=== PATIENT | female | born 1985 | race Caucasian/White ===

== ENCOUNTER → 2018-01-08 16:48 | Outpatient (CLI) | payer MEDICAID, SELFPAY ==
[2018-01-08 21:12] LABS: Chlamydia Trachomatis by PCR Negative (Negative); Neisserai gonorrhoeae by PCR Negative (Negative); Probe Check PASS; Sample Adequacy Control PASS; Specimen Processing Control PASS
== END ==
PROVIDERS: Visit Provider Obstetrics & Gynecology
DX: Z11.3 Encounter for screening for infections with a predominantly sexual mode of transmission (principal)
CPT/HCPCS: 87491; 87591

== ENCOUNTER 2018-01-24 16:24 | Outpatient (CLI) | payer MEDICAID, SELFPAY ==
[2018-01-24 16:58] VITALS: BP 114/67; PULSE 79; RESP 16; TEMP 36.8; O2SAT 99
[2018-01-24] MEDS: Dextrose 5%-Lactated Ringers 1,000 ML 125 ML IV (20:15)
== END 2018-01-25 04:20 | disposition home or self-care (01) ==
LOC: MEDOUTP 16:24 → MS2 16:25
PROVIDERS: Visit Provider Obstetrics & Gynecology
DX: R11.10 Vomiting, unspecified (principal)
CPT/HCPCS: 96365; 96366 ×11

== ENCOUNTER → 2018-01-29 16:28 | Outpatient (CLI) | payer MEDICAID, SELFPAY ==
[2018-01-29 18:09] LABS: Absolute Lymphocyte Count 2.05 X10^3/ul (0.83-4.51); Absolute Neutrophil Count 8.9 X10^3/uL (2.0-7.7); Basophil# 0.01 X10^3/uL; Basophil% 0.1 % (0-1); Eosinophil# 0.04 X10^3/uL; Eosinophils% 0.3 % (0-5); Hematocrit 37.3 % (37-47); Hemoglobin 12.1 g/dl (12.0-15.0); Lymphocyte # 2.05 X10^3/ul (4.0); Lymphocyte % 17.7 % (19-41); Mean Corp Hgb Conc 32.4 g/gl (32-36); Mean Corpuscular Hgb 29.2 pg (27.0-32.0); Mean Corpuscular Volume 89.9 fL (81-99); Mean Platelet Vol. 13.1 fl (6.2-12.0); Monocyte# 0.59 X10^3/uL; Monocyte% 5.1 % (0-10); Neutrophil # 8.86 X10^3/uL (2.7-7.7); Neutrophil % 76.5 % (47-70); Platelet Count 287 K/mm3 (150-450); RBC Distribution Width CV 13.1 % (11.6-14.6); RBC Distribution Width SD 42.9 fl (35.1-43.9); Red Blood Count 4.15 M/mm3 (4.2-5.4); White Blood Count 11.6 K/mm3 (4.4-11.0)
[2018-01-29 18:20] LABS: POSITIVE COUNT NO; POSITIVE DIFFERENTIAL NO; POSITIVE MORPHOLOGY NO
[2018-01-29 18:29] LABS: Thyroid Stim Hormone (TSH) 0.17 uIU/mL (0.358-3.74)
[2018-01-29 19:05] LABS: HIV - WCH Non-Reactive (Nonreactive); Rubella IgG 75.8 IU/mL
[2018-01-29 19:07] LABS: Amphetamine Urine VISTA NEGATIVE (<1000 ng/mL); Barbiturate Urine VISTA NEGATIVE (< 200 ng/mL); Benzodiazepine Urine VISTA NEGATIVE (< 200 ng/mL); Cocaine Urine VISTA NEGATIVE (< 300 ng/mL); Ecstacy Urine VISTA NEGATIVE (< 500 ng/mL); Methadone Urine VISTA NEGATIVE (< 300 ng/mL); PCP Urine VISTA NEGATIVE (< 25 ng/mL); THC Urine VISTA NEGATIVE (< 50 ng/mL); Vista UDS pH Range 5
[2018-01-29 19:41] LABS: Color, Urine Yellow (Yellow); Glucose, Dipstick Normal (Normal); Ketone-Dipstick Negative (Negative); Leukocyte Esterase-Dipstick Negative /ul (Negative); Nitrite-Dipstick Negative (Negative); Occult Blood-Urine Negative /ul (Negative); Protein-Dipstick Negative (Negative); Urine Bilirubin Dipstick Negative (Negative); Urine Clarity Cloudy (Clear); Urine Urobilinogen Normal (Normal)
[2018-01-31 11:24] LABS: HEPATITIS B SURFACE AG Negative (Negative); Hep C Antibodies <0.1 s/co ratio (0.0-0.9)
[2018-02-02 01:05] LABS: Prenatal RPR NONREACTIVE (NONREACTIVE)
== END ==
PROVIDERS: Visit Provider Obstetrics & Gynecology
DX: Z34.81 Encounter for supervision of other normal pregnancy, first trimester (principal)
CPT/HCPCS: 36415; 80307; 81002; 84443; 85025; 86703; 86762; 86803; 87340

== ENCOUNTER 2018-02-27 13:45 | Emergency (ER) | payer MEDICAID, SELFPAY ==
[2018-02-27 13:46] VITALS: BP 130/66; PULSE 94; RESP 18; TEMP 36.6; O2SAT 97; BMI 46.5
[2018-02-27 14:24] LABS: Absolute Lymphocyte Count 1.25 X10^3/ul (0.83-4.51); Absolute Neutrophil Count 7.2 X10^3/uL (2.0-7.7); Basophil# 0.01 X10^3/uL; Basophil% 0.1 % (0-1); Eosinophil# 0.03 X10^3/uL; Eosinophils% 0.3 % (0-5); Hemoglobin 11.5 g/dl (12.0-15.0); Lymphocyte # 1.25 X10^3/ul (4.0); Lymphocyte % 13.9 % (19-41); Mean Corp Hgb Conc 32.9 g/gl (32-36); Mean Corpuscular Hgb 29.3 pg (27.0-32.0); Mean Corpuscular Volume 89.1 fL (81-99); Monocyte# 0.49 X10^3/uL; Monocyte% 5.5 % (0-10); Neutrophil # 7.18 X10^3/uL (2.7-7.7); Neutrophil % 80.1 % (47-70); Platelet Count 273 K/mm3 (150-450); RBC Distribution Width CV 13.3 % (11.6-14.6); RBC Distribution Width SD 43.9 fl (35.1-43.9); Red Blood Count 3.93 M/mm3 (4.2-5.4)
[2018-02-27 14:27] LABS: Color, Urine Yellow (Yellow); Glucose, Dipstick Normal (Normal); Ketone-Dipstick 50 mg/dl (Negative); Leukocyte Esterase-Dipstick 25 /ul (Negative); Nitrite-Dipstick Negative (Negative); Occult Blood-Urine 10 /ul (Negative); Protein-Dipstick 15 mg/dl (Negative); Specific Gravity, Urine 1.025 (1.002-1.030); Urine Bilirubin Dipstick Negative (Negative); Urine Clarity Sl. Cloudy (Clear); Urine Urobilinogen Normal (Normal)
[2018-02-27 14:28] LABS: POSITIVE COUNT NO; POSITIVE DIFFERENTIAL NO; POSITIVE MORPHOLOGY NO
[2018-02-27 14:34] LABS: Bacteria 2+ /hpf (None Seen); Mucous, Urine 1+ /hpf (<or=2+); Red Blood Cells-Urine 0-5 SEEN /hpf (0-5); Squamous Epithelial Cells - UA 5-10 SEEN /hpf (5-10); White Blood Cells 0-5 SEEN /hpf (0-5)
[2018-02-27 14:56] LABS: Anion Gap 8 (5-15); BUN 8 mg/dL (7-18); BUN/Creat Ratio 14.1 RATIO (10-20); Calcium,Total 9.1 mg/dL (8.5-10.1); Chloride 104 mmol/L (98-107); Creatinine, Serum 0.57 mg/dL (0.55-1.02); EST Glomerular Filtration Rate 129 mL/min (>60); Est Glom Filt Rate - Afr Amer 156 mL/min (>60); Estimated Creatinine Clearance 125.14 ml/min; Glucose 75 mg/dL (74-106); Potassium 3.9 mmol/L (3.5-5.1); Sodium Level 136 mmol/L (136-145)
[2018-02-27 15:15] LABS: Pregnancy, Serum, hCG Quali. POSITIVE Negative (0-9 Nonpreg)
--- NOTE | 2018-02-27 15:30 | ED.VISSUMM ---
- ER Visit Summary Date of Service: 02/27/18 Chief Complaint: Vomiting and diarrhea and History of Present Illness: The patient is a 33 F who states that she is 14 weeks with twins. She sees Dr. Alejo for [facility] OPERATOR. The patient states that for the past 4 days she has had diarrhea. She states that she has had difficulty with vomiting the entire and Phenergan had been helping up until a couple days ago. Now she notes a generalized headache. She denies any fevers or rashes. She states she has had 3 episodes of diarrhea today that have been very small amounts. She denies any neurologic symptoms. Physical Examination: 130/66 temperature is 98 heart rate of 94 respirations are 18 pulse ox is 97% on room air Gen: Well-nourished well-developed Head: Normocephalic atraumatic Eyes: Perrl EOMI ENT: TMs clear no rhinorrhea moist mucous membranes Neck: Supple no lymphadenopathy no JVD nontender CVS: Regular rate rhythm no murmurs normal S1-S2 Respiratory: No distress clear to auscultation bilaterally chest nontender Abdomen: Soft nontender nondistended normal bowel sounds no masses Back: Nontender Extremity: Nontender no edema Skin: Normal color no rash Neuro: alert orientated ?3 CN II-XII intact normal strength sensation reflexes gait cerebellar Psych: Normal affect normal mood Test Results: C and a BMP showed a white count of 9 and hemoglobin 11.5. Urinalysis showed 50 ketones 5-10 epithelial cells. Emergency Department Course and Treatment: Received 2 L of IV fluids as well as Reglan. Bedside ultrasound of the uterus demonstrated baby A with heart rate of 142 with good activity baby B had heart rate of 153 with good activity. Patient overall is improved. She is hungry. Patient will be discharged home follow-up with her [facility] MILL OPERATOR Impression: 1. Gastroenteritis 2. Second trimester twin 3. Cephalgia This note was generated with [employer] dictation software. It may contain incorrect words, spelling, and punctuation that were not noted in review of the chart prior to signing ED Disposition - Plan for ED Patient: Disposition: Home or Assisted Living Chief Complaint: Nausea/Vomiting/Diarrhea Instructions: ED Vomiting Diarrhea Nonspecific Ad Referrals: Deuce Ibarra MD [STAFF PHYSICIAN] - Keep Tika appointment
[2018-02-27] MEDS: 0.9% Normal Saline 1,000 ML 999 ML IV ×2 (15:47)
[2018-02-27] MEDS: Metoclopramide 10 MG/2 ML Vial 5 MG IV (15:48)
[2018-02-27] MEDS: Acetaminophen 500 MG Tablet 1000 MG PO (17:15)
[2018-02-27 17:16] VITALS: BP 128/79; PULSE 99; RESP 16; O2SAT 100
[2018-02-27 17:40] VITALS: BP 128/79; PULSE 94; RESP 18; O2SAT 99
== END 2018-02-27 17:41 | disposition home or self-care (01) ==
PROVIDERS: Emergency Provider Emergency Medicine
DX: O98.512 Other viral diseases complicating pregnancy, second trimester (principal); K52.9 Noninfective gastroenteritis and colitis, unspecified; O99.89 Other specified diseases and conditions complicating pregnancy, childbirth and the puerperium; R51 Headache; E86.0 Dehydration; O99.512 Diseases of the respiratory system complicating pregnancy, second trimester; J45.909 Unspecified asthma, uncomplicated; O99.342 Other mental disorders complicating pregnancy, second trimester; F32.9 Major depressive disorder, single episode, unspecified; Z3A.14 14 weeks gestation of pregnancy; Z90.49 Acquired absence of other specified parts of digestive tract
CPT/HCPCS: 80048; 81001; 84703; 85025; 96361; 96374; 99284; J7030; A4216

== ENCOUNTER 2018-03-25 16:54 | Emergency (ER) | payer MEDICAID, SELFPAY ==
[2018-03-25 16:55] VITALS: BP 139/92; PULSE 117; RESP 16; TEMP 36; O2SAT 100; BMI 48.7
--- NOTE | 2018-03-25 17:03 | ED.DCSUM_ITS ---
- ER Visit Summary Date of Service: 03/25/18 Chief Complaint: Nausea, lightheadedness History of Present Illness: The patient is a 33 F presents to the emergency department with nausea and lightheadedness. The patient is currently 16 weeks gestation with twins. States over the past week, she feels like she has been dehydrated. Today, she was outside. She states she began to feel lightheaded. She denies any chest pain. She did not pass out. She has had some mild abdominal cramping, but states his been constant throughout the . She is currently taking Phenergan and prenatals. She states she has been up all night because she just found out that her [id number] has cancer and was admitted to the hospital. She has had no vaginal bleeding or discharge. She denies any urinary symptoms. She is scheduled to see [facility] SAL[employer] INSPECTOR in the morning. Physical Examination: Vital signs reviewed General: Well-nourished, well-developed Head: Normocephalic, atraumatic Eyes: Pupils equal and reactive, extraocular muscles intact Neck, supple, no lymphadenopathy Heart: Regular rate and rhythm Respiratory: No distress, clear bilaterally Abdomen: Soft, nontender, nondistended, no peritoneal signs Back: Nontender Extremities: Nontender, no edema, no cords Skin: Normal color no rash Neuro: Alert and oriented, no focal or lateralizing deficits Test Results: [] Emergency Department Course and Treatment: Patient was mildly tachycardic, but had no chest pain or dyspnea. Her abdominal exam is benign. Bedside ultrasound was performed. Patient has confirmed intrauterine twin . heart rates in the 140s and reactive. Patient was given IV fluids. Screening labs are obtained. Patient was given 2 L of fluids. She was also given oral Tylenol. On reevaluation she is resting comfortably. She has had no further progression of symptoms. She has had improvement. At this time, I do feel that she is safe for outpatient follow-up. She will be discharged home to follow-up with WO[employer] SAL[employer]AGE INSPECTOR tomorrow as scheduled. Treatment Plan: [] Disposition: Discharge Impression: 1. Dehydration 2. This note was generated with [employer] software. It may contain incorrect words, spelling, and punctuation that were not noted in review of the chart prior to signing ED Disposition - Plan for ED Patient: Chief Complaint: Nausea/Vomiting/Diarrhea Instructions: ED Dehydration Referrals: Weeman,Deuce, MD [STAFF PHYSICIAN] -
[2018-03-25] MEDS: 0.9% Normal Saline 1,000 ML 1000 ML IV ×2 (17:25→17:32)
[2018-03-25 17:32] LABS: Absolute Lymphocyte Count 1.56 X10^3/ul (0.83-4.51); Absolute Neutrophil Count 7.9 X10^3/uL (2.0-7.7); Basophil# 0.01 X10^3/uL; Basophil% 0.1 % (0-1); Eosinophil# 0.04 X10^3/uL; Eosinophils% 0.4 % (0-5); Hematocrit 34.1 % (37-47); Lymphocyte # 1.56 X10^3/ul (4.0); Lymphocyte % 15.6 % (19-41); Mean Corp Hgb Conc 32.3 g/gl (32-36); Mean Corpuscular Hgb 29.1 pg (27.0-32.0); Mean Corpuscular Volume 90.2 fL (81-99); Neutrophil # 7.91 X10^3/uL (2.7-7.7); Neutrophil % 78.8 % (47-70); POSITIVE COUNT NO; POSITIVE DIFFERENTIAL NO; POSITIVE MORPHOLOGY NO; Platelet Count 265 K/mm3 (150-450); RBC Distribution Width CV 13.6 % (11.6-14.6); RBC Distribution Width SD 44.7 fl (35.1-43.9); Red Blood Count 3.78 M/mm3 (4.2-5.4)
[2018-03-25 17:47] LABS: Anion Gap 6 (5-15); BUN 8 mg/dL (7-18); BUN/Creat Ratio 14.1 RATIO (10-20); Calcium,Total 8.5 mg/dL (8.5-10.1); Chloride 107 mmol/L (98-107); Creatinine, Serum 0.57 mg/dL (0.55-1.02); EST Glomerular Filtration Rate 130 mL/min (>60); Est Glom Filt Rate - Afr Amer 157 mL/min (>60); Estimated Creatinine Clearance 125.14 ml/min; Glucose 89 mg/dL (74-106); Potassium 3.8 mmol/L (3.5-5.1); Sodium Level 138 mmol/L (136-145)
[2018-03-25] MEDS: Acetaminophen 500 MG Tablet 1000 MG PO (17:47)
[2018-03-25 18:24] LABS: Bacteria 0 SEEN /hpf (None Seen); Mucous, Urine 0 SEEN /hpf (<or=2+); Red Blood Cells-Urine 0 SEEN /hpf (0-5); White Blood Cells 0 SEEN /hpf (0-5)
[2018-03-25 18:26] LABS: Color, Urine Yellow (Yellow); Glucose, Dipstick Normal (Normal); Ketone-Dipstick Negative (Negative); Leukocyte Esterase-Dipstick Negative /ul (Negative); Nitrite-Dipstick Negative (Negative); Occult Blood-Urine Negative /ul (Negative); Protein-Dipstick Negative (Negative); Urine Bilirubin Dipstick Negative (Negative); Urine Clarity Clear (Clear); Urine Urobilinogen Normal (Normal)
[2018-03-25 18:48] LABS: Squamous Epithelial Cells - UA 0-5 SEEN /hpf (5-10)
[2018-03-25 18:56] VITALS: BP 120/63; PULSE 90; RESP 16; O2SAT 97
[2018-03-25 20:26] VITALS: BP 127/68; PULSE 78; RESP 16; O2SAT 99
== END 2018-03-25 20:26 | disposition home or self-care (01) ==
PROVIDERS: Emergency Provider Emergency Medicine
DX: O26.892 Other specified pregnancy related conditions, second trimester (principal); E86.0 Dehydration; O21.9 Vomiting of pregnancy, unspecified; O30.002 Twin pregnancy, unspecified number of placenta and unspecified number of amniotic sacs, second trimester; Z3A.16 16 weeks gestation of pregnancy; Z79.899 Other long term (current) drug therapy
CPT/HCPCS: 80048; 81001; 85025; 99285; A4216

== ENCOUNTER 2018-04-20 01:19 | Emergency (ER) | payer MEDICAID, SELFPAY ==
[2018-04-20 01:20] VITALS: BP 130/62; PULSE 94; RESP 23; TEMP 36.7; O2SAT 100; BMI 49.8
--- NOTE | 2018-04-20 01:50 | EKG12_ITS ---
Test Reason : CP Blood Pressure : / mmHG Vent. Rate : 092 BPM Atrial Rate : 092 BPM P-R Int : 138 ms QRS Dur : 078 ms QT Int : 360 ms P-R-T Axes : 043 027 040 degrees QTc Int : 445 ms Normal sinus rhythm Nonspecific ST abnormality Abnormal ECG Confirmed by AYO KIRBY, ELIZABETH ([id number]), associate entertainment editor BRUNILDA RAGSDALE ([id number]) on 04/20/2018 1:04:31 PM Referred By: THEODORE Confirmed By:ELIZABETH ROLLINS MD
[2018-04-20 01:59] LABS: Absolute Lymphocyte Count 2.24 X10^3/ul (0.83-4.51); Absolute Neutrophil Count 6.8 X10^3/uL (2.0-7.7); Basophil# 0.02 X10^3/uL; Basophil% 0.2 % (0-1); Eosinophil# 0.06 X10^3/uL; Eosinophils% 0.6 % (0-5); Hematocrit 32.8 % (37-47); Hemoglobin 10.9 g/dl (12.0-15.0); Lymphocyte # 2.24 X10^3/ul (4.0); Lymphocyte % 23.1 % (19-41); Mean Corp Hgb Conc 33.2 g/gl (32-36); Mean Corpuscular Hgb 30.4 pg (27.0-32.0); Mean Corpuscular Volume 91.6 fL (81-99); Mean Platelet Vol. 12.1 fl (6.2-12.0); Monocyte# 0.54 X10^3/uL; Monocyte% 5.6 % (0-10); Neutrophil # 6.81 X10^3/uL (2.7-7.7); Neutrophil % 70.1 % (47-70); Platelet Count 277 K/mm3 (150-450); RBC Distribution Width CV 13.4 % (11.6-14.6); Red Blood Count 3.58 M/mm3 (4.2-5.4); White Blood Count 9.7 K/mm3 (4.4-11.0)
[2018-04-20 02:01] LABS: POSITIVE COUNT NO; POSITIVE DIFFERENTIAL NO; POSITIVE MORPHOLOGY NO
--- NOTE | 2018-04-20 02:06 | ED.DCSUM_ITS ---
- ER Visit Summary Date of Service: 04/20/18 Chief Complaint: Chest pain History of Present Illness: The patient is a 33 F who is 20 weeks presents with sharp stabbing pleuritic retrosternal chest pain that started 2 hours ago. She has had quite a bit of nausea and vomiting throughout her and she did have some nausea and vomiting tonight, one episode had some slight blood streak through it. She has no abdominal pain. No back pain. No fever chills no cough. Physical Examination: Not appear in acute distress. Moist mucous membranes, no obvious facial deformity No C-spine tenderness supple neck. Regular rate and rhythm without any obvious murmurs Clear lungs bilaterally speaking in full sentences without any obvious respiratory distress Abdomen soft and nontender no guarding or rebound. Patient is quite obese thus I cannot palpate a uterus Moves all extremities without any difficulty or pain. Skin does not show any obvious rashes or lesions, no trauma. Alert oriented ?3 with no gross focal deficit Emergency Department Course and Treatment: After long discussion with the patient and a positive d-dimer we did a CT for PE which was negative. The rest of the workup is negative. I reassured her and she will be discharged in stable condition. Impression: Chest pain This note was generated with [employer] dictation software. It may contain incorrect words, spelling, and punctuation that were not noted in review of the chart prior to signing ED Disposition - Plan for ED Patient: Disposition: Home or Assisted Living Chief Complaint: Chest Pain Instructions: ED Chest Pain [facility] , ED Chest Pain NonCardiac Referrals: Care Physician,No Primary [Primary Care Provider] - 2 Days
[2018-04-20] MEDS: DiphenhydrAMINE 50 MG/ML Syringe 25 MG IV (02:07)
[2018-04-20] MEDS: Metoclopramide 10 MG/2 ML Vial IV (02:07)
[2018-04-20] MEDS: 0.9% Normal Saline 1,000 ML 1000 ML IV (02:07)
[2018-04-20 02:09] LABS: ALB/GLOB Ratio 0.6 RATIO (0.9-2.4); AST(SGOT) 13 U/L (15-37); Alanine Aminotransfer ALT/SGPT 18 U/L (13-56); Albumin, Serum 2.7 g/dL (3.2-5.0); Alkaline Phosphatase 91 U/L (45-117); Anion Gap 7 (5-15); BUN 9 mg/dL (7-18); BUN/Creat Ratio 15.7 RATIO (10-20); Calcium,Total 8.8 mg/dL (8.5-10.1); Chloride 105 mmol/L (98-107); Creatinine, Serum 0.57 mg/dL (0.55-1.02); EST Glomerular Filtration Rate 128 mL/min (>60); Est Glom Filt Rate - Afr Amer 155 mL/min (>60); Estimated Creatinine Clearance 125.14 ml/min; Globulin 4.6 g/dL (2.2-4.2); Glucose 81 mg/dL (74-106); Potassium 3.8 mmol/L (3.5-5.1); Protein, Total 7.3 g/dL (6.4-8.2); Sodium Level 137 mmol/L (136-145)
[2018-04-20 02:24] LABS: Mucous, Urine 0 SEEN /hpf (<or=2+); Red Blood Cells-Urine 0 SEEN /hpf (0-5); White Blood Cells 0 SEEN /hpf (0-5)
[2018-04-20 02:26] LABS: Color, Urine Yellow (Yellow); Glucose, Dipstick Normal (Normal); Ketone-Dipstick Negative (Negative); Leukocyte Esterase-Dipstick Negative /ul (Negative); Nitrite-Dipstick Negative (Negative); Occult Blood-Urine Negative /ul (Negative); Protein-Dipstick Negative (Negative); Specific Gravity, Urine 1.025 (1.002-1.030); Urine Bilirubin Dipstick Negative (Negative); Urine Clarity Sl. Cloudy (Clear); Urine Urobilinogen Normal (Normal)
[2018-04-20 02:35] LABS: Amorphous Sediment 1+; Bacteria RARE /hpf (None Seen); Squamous Epithelial Cells - UA 0-5 SEEN /hpf (5-10)
--- NOTE | 2018-04-20 02:44 | CT_ITS ---
STUDY: CTA CHEST REASON FOR EXAM: Female, 33 years old. CHEST PAIN,ELEVATED DDIMER,NAUSEA AND VOMITING,HAD IV ISSUES AND RE-INJECTED CONTRAST RADIATION DOSAGE (If Supplied By Facility): CTDIvol = ( 14.10 ) mGy, DLP = ( 2170.59 ) mGycm TECHNIQUE: The examination was performed with the intravenous administration of 175ML ml of Isovue 370 contrast material. Post-processing of the angiographic images was performed, with multiplanar reformation and 3D reconstruction. Individualized dose optimization techniques were used for this CT. COMPARISON: None. FINDINGS: Normal enhancement of the main pulmonary artery and right and left pulmonary arteries. There is limited enhancement of the bilateral peripheral pulmonary arteries. There is no demonstrated pulmonary embolism. Normal thoracic aorta and visualized great vessels. There is no demonstrated aortic dissection. Normal heart and pericardium. Normal mediastinum. Normal hilar regions. Normal visualized trachea and bronchi. The lungs are well expanded. Normal pulmonary parenchyma. Normal pleura. Normal chest wall structures. Normal osseous structures. Normal visualized upper abdomen. CT/CTA Chest W/WO Contrast IMPRESSION: No demonstrated pulmonary embolism or arterial dissection. Electronically Signed: Johanne Estrada MD at 4:13 EDT Tel , Service support ,
--- NOTE | 2018-04-20 02:44 | ED.RN ---
DR BURROUGHS NOTIFIED OF DDIMER RESULTS
[2018-04-20 04:37] VITALS: BP 112/56; PULSE 94; RESP 18; O2SAT 96
== END 2018-04-20 04:38 | disposition home or self-care (01) ==
PROVIDERS: Emergency Provider Emergency Medicine
DX: O26.892 Other specified pregnancy related conditions, second trimester (principal); R07.9 Chest pain, unspecified; O21.2 Late vomiting of pregnancy; J45.909 Unspecified asthma, uncomplicated; Z79.899 Other long term (current) drug therapy; Z3A.20 20 weeks gestation of pregnancy
CPT/HCPCS: 71275; 80053; 81001; 85025; 85379; 93005; 96374; 96375; 99284; J7030; Q9967; A4216

== ENCOUNTER 2018-05-03 13:07 | Emergency (ER) | payer MEDICAID, SELFPAY ==
[2018-05-03 13:08] VITALS: BP 144/72; PULSE 104; RESP 16; TEMP 36.8; O2SAT 97; BMI 48.6
--- NOTE | 2018-05-03 13:24 | ED.VISSUMM ---
- ER Visit Summary Date of Service: 05/03/18 Chief Complaint: Dehydration History of Present Illness: The patient is a 33 F who is currently 21 weeks with twins. Patient states she has had problems with nausea and vomiting and dehydration throughout the . She currently feels dehydrated. She does report a mild cream to the right lower pelvis that is constant. She denies any vaginal bleeding or spotting. She has been feeling good movement. Physical Examination: Vital signs in triage significant for blood pressure 144/72 and a heart rate of 104. Patient sitting upright in bed no acute distress. She is alert and talkative. Heart is regular rate and rhythm. Lung sounds are clear. Abdomen is soft and gravid. There is no focal tenderness on exam. Hypoactive bowel sounds are noted throughout. Test Results: Chemistry studies are significant for potassium of 3.4. Emergency Department Course and Treatment: Patient is given Phenergan and a liter of IV fluids. On repeat evaluation she does feel improved. heart tones are measured at 142 and 150. Patient will be discharged with a prescription for Reglan that she can try for nausea if needed. She only has Phenergan at home. She has tried Zofran in the past without success. Treatment Plan: [] Disposition: Discharge Impression: Nausea, improved This note was generated with [employer] dictation software. It may contain incorrect words, spelling, and punctuation that were not noted in review of the chart prior to signing ED Disposition - Plan for ED Patient: Chief Complaint: Nausea/Vomiting Referrals: Care Physician,No Primary [Primary Care Provider] -
[2018-05-03 13:28] VITALS: PULSE 99; RESP 16; O2SAT 97
--- NOTE | 2018-05-03 13:28 | ED.DCSUM_ITS ---
- ER Visit Summary Date of Service: 05/03/18 Chief Complaint: Dehydration History of Present Illness: The patient is a 33 F who is currently 21 weeks with twins. Patient states she has had problems with nausea and vomiting and dehydration throughout the . She currently feels dehydrated. She does report a mild cream to the right lower pelvis that is constant. She denies any vaginal bleeding or spotting. She has been feeling good movement. Physical Examination: Vital signs in triage significant for blood pressure 144/ 72 and a heart rate of 104. Patient sitting upright in bed no acute distress. She is alert and talkative. Heart is regular rate and rhythm. Lung sounds are clear. Abdomen is soft and gravid. There is no focal tenderness on exam. Hypoactive bowel sounds are noted throughout. Test Results: Chemistry studies are significant for potassium of 3.4. Emergency Department Course and Treatment: Patient is given Phenergan and a liter of IV fluids. On repeat evaluation she does feel improved. heart tones are measured at 142 and 150. Patient will be discharged with a prescription for Reglan that she can try for nausea if needed. She only has Phenergan at home. She has tried Zofran in the past without success. Treatment Plan: [] Disposition: Discharge Impression: Nausea, improved This note was generated with [employer] dictation software. It may contain incorrect words, spelling, and punctuation that were not noted in review of the chart prior to signing ED Disposition - Plan for ED Patient: Chief Complaint: Nausea/Vomiting Referrals: Care Physician,No Primary [Primary Care Provider] -
[2018-05-03] MEDS: proMETHazine 25 MG/ML Syringe 12.5 MG IV (13:43)
[2018-05-03] MEDS: 0.9% Normal Saline 1,000 ML 1000 ML IV (13:44)
[2018-05-03 14:01] LABS: Anion Gap 5 (5-15); BUN 6 mg/dL (7-18); BUN/Creat Ratio 9.9 RATIO (10-20); Calcium,Total 8.4 mg/dL (8.5-10.1); Chloride 107 mmol/L (98-107); Creatinine, Serum 0.61 mg/dL (0.55-1.02); EST Glomerular Filtration Rate 120 mL/min (>60); Est Glom Filt Rate - Afr Amer 145 mL/min (>60); Estimated Creatinine Clearance 116.93 ml/min; Glucose 113 mg/dL (74-106); Potassium 3.4 mmol/L (3.5-5.1); Sodium Level 139 mmol/L (136-145)
--- NOTE | 2018-05-03 15:14 | ED.DEP ---
ED Disposition - Plan for ED Patient: Disposition: Home or Assisted Living Chief Complaint: Nausea/Vomiting Instructions: ED Preg Morning Sickness Prescriptions: Metoclopramide [Reglan] 10 mg PO 4X/DAY PRN #20 tablet PRN Reason: Nausea/Emesis Referrals: Deuce Ibarra MD [STAFF PHYSICIAN] - Keep Tika appointment
[2018-05-03 15:47] VITALS: BP 131/65; PULSE 72; RESP 16; O2SAT 100
== END 2018-05-03 15:48 | disposition home or self-care (01) ==
PROVIDERS: Emergency Provider Emergency Medicine
DX: O21.2 Late vomiting of pregnancy (principal); O30.002 Twin pregnancy, unspecified number of placenta and unspecified number of amniotic sacs, second trimester; J45.909 Unspecified asthma, uncomplicated; M19.90 Unspecified osteoarthritis, unspecified site; Z79.899 Other long term (current) drug therapy; Z3A.21 21 weeks gestation of pregnancy
CPT/HCPCS: 80048; 96361; 96374; 99283; J7030

== ENCOUNTER → 2018-06-11 14:52 | Outpatient (CLI) | payer MEDICAID, SELFPAY ==
[2018-06-11 15:57] LABS: Hematocrit 32.3 % (37-47); Hemoglobin 10.5 g/dl (12.0-15.0); Mean Corp Hgb Conc 32.5 g/gl (32-36); Mean Corpuscular Hgb 29.6 pg (27.0-32.0); Mean Platelet Vol. 12.8 fl (6.2-12.0); Platelet Count 254 K/mm3 (150-450); RBC Distribution Width CV 13.3 % (11.6-14.6); RBC Distribution Width SD 43.1 fl (35.1-43.9); Red Blood Count 3.55 M/mm3 (4.2-5.4); White Blood Count 10.2 K/mm3 (4.4-11.0)
[2018-06-11 16:12] LABS: Scan Indicated on CBC? Y/N NO
[2018-06-11 16:47] LABS: Glucose Challenge Gest 1H 50g 126 mg/dL (70-140)
== END ==
PROVIDERS: Visit Provider Obstetrics & Gynecology
DX: Z34.83 Encounter for supervision of other normal pregnancy, third trimester (principal)
CPT/HCPCS: 36415; 82950; 85027

== ENCOUNTER 2018-07-02 14:30 | Outpatient (CLI) | payer MEDICAID, SELFPAY ==
[2018-07-02 14:49] VITALS: BMI 49.8
--- OUTSIDE RECORDS SUMMARY | 2018-07-02 15:13 | XMS RPT_ITS ---
:1985 Author Organization OHIP Support Name Relationship Address Phone ROSA RICH/ERASMO Unavailable [address] + [place] [address] KAI ANDRESSA Unavailable [address] + [place] [address] TRILOCSCH Unavailable [address] [place] [address] + [place] [address] ROSA RICH/ERASMO Unavailable [address] + [place] [address] KAI ANDRESSA Unavailable [address] + [place] [address] TRILOCSCH Unavailable [address] [place] [address] + [place] [address] ROSA RICH/ERASMO Unavailable [address] + [place] [address] KAI ANDRESSA Unavailable [address] + [place] [address] TRILOC[employer] Unavailable [address] [place] [address] + [place] [address] ROSA RICH/ERASMO Unavailable [address] + [place] [address] SHINGLPATO ANDRESSA Unavailable [address] + [place] [address] TRILOCSCH Unavailable [address] [place] [address] + [place] [address] ROSA RICH/ERASMO Unavailable [address] + [place] [address] KAI ANDRESSA Unavailable [address] + [place] [address] TRILOCSCH Unavailable [address] [place] [address] + [place] [address] LEE, RICH/ERASMO Unavailable [address] [phone] [address] [place] [address] ANDRESSA DELEON Unavailable [address] + [place] [address] TRILOCSCH Unavailable [address] [place] [address] + [place] [address] LEE, RICH/ERASMO Unavailable [address] [phone] [address] [place] [address] ANDRESSA DELEON Unavailable [address] + [place] [address] TRILOCSCH Unavailable [address] [place] [address] + [place] [address] LEE, RICH/ERASMO Unavailable [address] [phone] [address] [place] [address] ANDRESSA DELEON Unavailable [address] + [place] [address] TRILOC[facility] Unavailable [address] [place] [address] + [place] [address] LEE, RICH/ERASMO Unavailable [address] [phone] [address] [place] [address] ANDRESSA DELEON Unavailable [address] [place] [address] TRILOCSCH Unavailable [address] [place] [address] + [place] [address] LEE, RICH/ERASMO Unavailable [address] [phone] [address] [place] [address] [facility] Unavailable [address] + [place] [address] ANDRESSA DELEON Unavailable [address] + [address] [place] [address] LEE, RICH/ERASMO Unavailable [address] [phone] [address] [place] [address] [facility] Unavailable [address] + [place] [address] ANDRESSA DELEON Unavailable [address] [facility] + [address] [place] [address] Care Team Providers Name Role Phone NeelimaFamilia qureshi Attending Unavailable Primay Care Physicia, No Referring Unavailable Primay Care Physicia, No Primary Care Unavailable Deuce Ibarra Attending Unavailable Primay Care Physicia, No Primary Care Unavailable Deuce Ibarra Attending Unavailable Deuce Ibarra Referring Unavailable Primay Care Physicia, No Primary Care Unavailable Deuce Ibarra Attending Unavailable Primay Care Physicia, No Primary Care Unavailable Ramon Rodas Attending Unavailable Primay Care Physicia, No Referring Unavailable Primay Care Physicia, No Primary Care Unavailable Primay Care Physicia, No Primary Care Unavailable Kit Rondon Attending Unavailable Primay Care Physicia, No Primary Care Unavailable Pipo Pritchett Attending Unavailable Primay Care Physicia, No Primary Care Unavailable Ke Bullard Attending Unavailable Primay Care Physicia, No Primary Care Unavailable Lise Jasso Attending Unavailable Deuce Ibarra Attending Unavailable Primay Care Physicia, No Primary Care Unavailable Deuce Ibarra Attending Unavailable PROBLEMS PROBLEMS DATE TYPE CONDITION / CODE ATTENDING STATUS SOURCE 06/11/2018 Unknown Z34.83 - Encounter Deuce Ibarra Active [place] for supervision of Community other normal Hospital , third Repository trimester / Z34.83(ICD-10) 04/26/2018 Unknown R07.9 - Chest pain, Ke Bullard Active [place] unspecified / Community R07.9(ICD-10) Hospital Repository 01/29/2018 Unknown Z34.81 - Encounter Deuce Ibarra for supervision of Community other normal Hospital , first Repository trimester / Z34.81(ICD-10) 01/08/2018 Unknown Z11.3 - Encounter Deuce Ibarra for screening for Community infections with a Hospital predominantly Repository sexual mode of transmission / Z11.3(ICD-10) PROCEDURES PROCEDURES No Procedure Records FoundRESULTS RESULTS CBC-COMPLETE BLOOD CNT Collected: 06/11/2018 Status: F Source: [place] NO DIFF 3:03 PM [facility] TYPE CODE TESTS RESULT OUT OF RANGE REFERENCE UNITS LAB L100.1000 Normal 4.4-11.0 K/mm3 WBC 10.2 LAB L100.1200 Low 4.2-5.4 M/mm3 RBC 3.55 LAB L100.1300 Low 12.0-15.0 g/dl HGB 10.5 LAB L100.1400 Low 37-47 % HCT 32.3 LAB L100.1500 Normal 81-99 fL MCV 91.0 LAB L100.1600 Normal 27.0-32.0 pg MCH 29.6 LAB L100.1700 Normal 32-36 g/gl MCHC 32.5 LAB L100.1810 Normal 11.6-14.6 % RDW 13.3 CV LAB L100.1820 Normal 35.1-43.9 fl RDW 43.1 SD LAB L100.1900 Normal 150-450 K/mm3 PLT 254 LAB L100.2000 High 6.2-12.0 fl MPV 12.8 Performed By: #### L100.0500 #### [facility] [address] [facility] [place], [address] GLUCOSE CHALLENGE GEST Collected: 06/11/2018 Status: F Source: [place] 1H 50G 3:03 PM [facility] REPOSITORY TYPE CODE TESTS RESULT OUT OF RANGE REFERENCE UNITS LAB L501.0250 Normal 70-140 mg/dL GLU 126 GEST 50g 1H Performed By: #### L501.0250 #### [facility] [address] [place], [address] EMERGENCY DEPARTMENT Observed: 05/03/2018 Status: F Source: [place] SUMMARY 4:28 PM [facility] REPOSITORY [facility] [address] [place], [place] [address]Hpofgkjdy Department Rasibgf84/02/18 1324MR#: [id number] Acct: [id number]: MURRAY QUINN Rep #: [id number]: 1985 33 From: Lise Jasso MDPCP: Care Physician, No Primary Status: DEP ER- ER Visit SummaryDate of Service: 05/03/18Chief Complaint: DehydrationHistory of Present Illness: The patient is a 33 F who is currently 21 weeks withtwins. Patient states she has had problems with nausea and vomiting and dehydration throughoutthe . She currently feels dehydrated. She does report a mild cream to the rightlower pelvis that is constant. She denies any vaginal bleeding or spotting. She has beenfeeling good movement.Physical Examination: Vital signs in triage significant for blood pressure 144/72 and a heartrate of 104.Patient sitting upright in bed no acute distress. She is alert and talkative.Heart is regular rate and rhythm.Lung sounds are clear.Abdomen is soft and gravid. There is no focal tenderness on exam. Hypoactive bowel sounds arenoted throughout.Test Results: Chemistry studies are significant for potassium of 3.4.Emergency Department Course and Treatment: Patient is given Phenergan and a liter of IV fluids.On repeat evaluation she does feel improved. heart tones are measured at 142 and 150.Patient will be discharged with a prescription for Reglan that she can try for nausea ifneeded. She only has Phenergan at home. She has tried Zofran in the past without success.Treatment Plan: []Disposition: DischargeImpression: Nausea, improvedThis note was generated with SoundFocus dictation software. It may contain incorrect words,spelling, and punctuation that were not noted in review of the chart prior to signingED Disposition- Plan for ED Patient:Chief Complaint: Nausea/VomitingReferrals:Care Physician,No Primary [Primary Care Provider] -What to do if you have ProblemsFor any increased pain, shortness of breath, bleeding, nausea or vomiting, chest pain, or anyunexpected problems, contact your Primary Care Provider. Call [facility] ([phone])or report to the closest Emergency Room.Call 911 if necessary.05/03/18 9372 <Electronically signed by Lise Jasso MD>Date Lise GOODENosigner Signature (If Indicated): Date CC: No Primary Care Physician DISCHARGE INSTRUCTION Observed: 05/03/2018 Status: F Source: [place] 3:15 PM [facility] REPOSITORY [facility] [address]ig[address]ptyfb[address] [place] [address]Frvsryeui Fragoijmeor92/02/18 1514MR#: [id number] Acct: [id number]: MURRAY QUINN Rep #: [id number]: 1985 33 From: Lise Jasso MDPCP: Care Physician, No Primary Status: REG ERED Disposition- Plan for ED Patient:Disposition: Home or Assisted LivingChief Complaint: Nausea/VomitingInstructions: ED Preg Morning SicknessPrescriptions:Metoclopramide [Reglan] 10 mg PO 4X/DAY PRN #20 tabletPRN Reason: Nausea/EmesisReferrals:Deuce Ibarra MD [STAFF PHYSICIAN] - Keep Tika appointmentWhat to do if you have ProblemsFor any increased pain, shortness of breath, bleeding, nausea or vomiting, chest pain, or anyunexpected problems, contact your Primary Care Provider. Call [facility] ([phone])or report to the closest Emergency Room.Call 911 if necessary.05/03/18 1515 <Electronically signed by Lise Jasso MD>Date Lise Jasso MDCosigner Signature (If Indicated): Date CC: No Primary Care Physician BASIC METABOLIC Collected: 05/03/2018 Status: F Source: [place] PROFILE (BMP) 1:42 PM [facility] REPOSITORY TYPE CODE TESTS RESULT OUT OF RANGE REFERENCE UNITS LAB L501.0100 High 74-106 mg/dL GLU 113 Result Comment: Fasting Glucose result from 100 to 125 mg/dL suggests IMPAIRED HOMEOSTASIS per A.D.A. criteria. Please note revised GLUCOSE reference range effective 2017. LAB L501.1000 Low 7-18 mg/dL BUN 6 LAB L501.1100 Normal 0.55-1.02 mg/dL CREAT,SERUM 0.61 Result Comment: The validity of the calculated GFR AND GFRAA in patients over 70 years has not been determined. Clinical correlation is essential. LAB L501.1110 Normal >60 mL/min EST GFR 120 Result Comment: Non- GFR Calc LAB L501.1115 Normal >60 mL/min EST GFR - AA 145 Result Comment: GFR Calc LAB L501.1255 Normal ml/min Estimated 116.93 CRCL LAB L501.1300 Low 10-20 RATIO BUN/CRE 9.9 LAB L501.2200 Low 8.5-10 mg/dL CA 8.4 .1 LAB L501.5300 Normal 136-14 mmol/L NA 139 5 LAB L501.5600 Low 3.5-5. mmol/L K 3.4 1 LAB L501.5900 Normal 98-107 mmol/L CL 107 LAB L501.6100 Normal 21.0-3 mmol/L CO2 27.0 2.0 LAB L501.6200 Normal 5-15 GAP 5 Performed By: #### L500.2500 #### [facility] [address] [place], [address] 12 LEAD ELECTROCARDIOGRAM Observed: 04/20/2018 Status: F Source: [place] 1:05 PM [facility] REPOSITORY [facility] [address] [place], [place] [address] Lead EKG004/20/18 0121MR#: [id number] Acct: [id number]: MURRAY QUINN Rep #: [id number]: 1985 33 From: Messi Saxena MDAttending Dr: Status: DEP EROrdering Dr: Ke Bullard MD Date: 04/20/18Location: ED Sex: F CAdmitted:Test Reason : CPBlood Pressure : / mmHGVent. Rate : 092 BPM Atrial Rate : 092 BPMP-R Int : 138 ms QRS Dur : 078 msQT Int : 360 ms P-R-T Axes : 043 027 040 degreesQTc Int : [address] abnormalityAbnormal ECGConfirmed by MESSI SAXENA MD ([id number]), book or script editor BRUNILDA RAGSDALE ([id number]) on 04/20/2018 1:04:31 PMReferred By: THEODORE Confirmed By:MESSI SAXENA MD04/20/18 1304Date Lynnadonay Odessa MDCC: No Primary Care Physician; Ke Bullard MD Signed EMERGENCY DEPARTMENT Observed: 04/20/2018 Status: F Source: [place] SUMMARY 4:23 AM [facility] REPOSITORY [facility] [address] [place] [place], [place] [address]Sgtwprajh Department Ptwcxzf89/20/18 0205MR#: [id number] Acct: [id number]: MURRAY QUINN Rep #: [id number]: 1985 33 From: Ke Bullard MDPCP: Care Physician, No Primary Status: REG ER- ER Visit SummaryDate of Service: 04/20/18Chief Complaint: Chest painHistory of Present Illness: The patient is a 33 F who is 20 weeks presents with sharpstabbing pleuritic retrosternal chest pain that started 2 hours ago. She has had quite a bitof nausea and vomiting throughout her and she did have some nausea and vomitingtonight, one episode had some slight blood streak through it. She has no abdominal pain. Noback pain. No fever chills no cough.Physical Examination:Not appear in acute distress.Moist mucous membranes, no obvious facial deformityNo C-spine tenderness supple neck.Regular rate and rhythm without any obvious murmursClear lungs bilaterally speaking in full sentences without any obvious respiratory distressAbdomen soft and nontender no guarding or rebound. Patient is quite obese thus I cannotpalpate a uterusMoves all extremities without any difficulty or pain.Skin does not show any obvious rashes or lesions, no trauma.Alert oriented 3 with no gross focal deficitEmergency Department Course and Treatment: After long discussion with the patient and apositive d-dimer we did a CT for PE which was negative. The rest of the workup is negative. Ireassured her and she will be discharged in stable condition.Impression: Chest painThis note was generated with SoundFocus dictation software. It may contain incorrect words,spelling, and punctuation that were not noted in review of the chart prior to signingED Disposition- Plan for ED Patient:Disposition: Home or Assisted LivingChief Complaint: Chest PainInstructions: ED Chest Pain UKO Ch, ED Chest Pain NonCardiacReferrals:Care Physician,No Primary [Primary Care Provider] - 2 DaysWhat to do if you have ProblemsFor any increased pain, shortness of breath, bleeding, nausea or vomiting, chest pain, or anyunexpected problems, contact your Primary Care Provider. Call [facility] ([phone])or report to the closest Emergency Room.Call 911 if necessary.04/20/18 0423 <Electronically signed by Ke Bullard MD>Date Ke Bullard MDCosigner Signature (If Indicated): Date CC: No Primary Care Physician CTA CHEST W/WO Observed: 04/20/2018 Status: F Source: [place] CONTRAST 2:45 AM [facility] REPOSITORY [facility] [address] [place] [address]VFA Chest W/WO ContrastMR#: [id number] Acct: [id number]: MURRAY QUINN Rep #: [id number]: 1985 F 33 From: Johanne Estrada MDPCP: Care Physician, No Primary Status: REG ERStudy: CTA Chest W/WO Contrast Date of Exam: 04/20/18Exam# [id number] Ordering Dr: Ke Bullard MDSTUDY: CTA CHESTREASON FOR EXAM: Female, 33 years old. CHEST PAIN,ELEVATEDDDIMER,NAUSEA AND VOMITING,HAD IV ISSUES AND RE-INJECTED CONTRASTRADIATION DOSAGE (If Supplied By Facility): CTDIvol = ( 14.10 ) mGy, DLP =( 2170.59 ) mGycmTECHNIQUE: The examination was performed with the intravenousadministration of 175ML ml of Isovue 370 contrast material.Post-processing of the angiographic images was performed, with multiplanarreformation and 3D reconstruction.Individualized dose optimization techniques were used for this CT.COMPARISON: None. FINDINGS:Normal enhancement of the main pulmonary artery and right and leftpulmonary arteries. There is limited enhancement of the bilateralperipheral pulmonary arteries. There is no demonstrated pulmonaryembolism.Normal thoracic aorta and visualized great vessels.There is no demonstrated aortic dissection.Normal heart and pericardium.Normal mediastinum. Normal hilar regions.Normal visualized trachea and bronchi. The lungs are well expanded.Normal pulmonary parenchyma.Normal pleura.Normal chest wall structures.Normal osseous structures.Normal visualized upper abdomen. ORDER #: [id number] CT/CTA Chest W/WO ContrastIMPRESSION:No demonstrated pulmonary embolism or arterial dissection.Electronically Signed:Johanne Estrada MD at 4:13 EDTTel , Service support , OA: No Primary Care Physician; Ke Bullard MD Securities Settlement Processor:Signed D-DIMER QUANTITATIVE Collected: 04/20/2018 Status: F Source: [place] (DVT/PE) 2:18 AM [facility] REPOSITORY TYPE CODE TESTS RESULT OUT OF RANGE REFERENCE UNITS LAB L300.8000 High alert 0.27-0.49 FEU/ug/m 0.70 D-DIMER QUANT Result Comment: D-Dimer ELEVATED (>0.49): Additional studies and clinical assessments are indicated to conclude diagnosis of: Deep Vein Thrombosis (DVT) or Pulmonary Embolism (PE) CRITICAL VALUE VERIFIED. CALLED TO CINTHIA LUNA 04/20/18 Yumiko Singh. RESULTS READ BACK BY SAME . Performed By: #### L300.8000 #### [facility] [address] [place], [address] URINALYSIS, COMPLETE Collected: 04/20/2018 Status: F Source: [place] 2:13 AM [facility] REPOSITORY Order Comment: Order Date: 04/20/18How was Urine Obtained? WHARF HAND TO SPECIFY TYPE CODE TESTS RESULT OUT OF RANGE REFERENCE UNITS LAB L400.3000 Normal Yellow COLOR Yellow LAB L400.3050 Normal Clear CLARITY Sl. Cloudy LAB L400.3200 Normal Normal mg/dl GLUCOSE, UR Normal LAB L400.3300 Normal Negative mg/dL BILIRUBIN Negative URINE LAB L400.3400 Normal Negative mg/dl KETONE UR Negative LAB L400.3465 Normal 1.002-1.030 SP.GR. 1.025 DIPSTX LAB L400.3550 Normal 5.0 - 8.0 pH UR 6.0 LAB L400.3600 Normal Negative mg/dl PROT DIPSTX Negative LAB L400.3700 Normal Normal mg/dl UROBILI Normal LAB L400.3750 Normal Negative NITRITE UR Negative LAB L400.3780 Normal Negative /ul OCCULT Negative BLOOD-UR LAB L400.3800 Normal Negative /ul LEUK Negative ESTERASE LAB L400.4050 Normal 0-5 /hpf WBC 0 SEEN LAB L400.4100 Normal 0-5 /hpf RBC-UA 0 SEEN LAB L400.4150 Normal 5-10 /hpf SQUAM EPI 0-5 SEEN LAB L400.4300 Normal None Seen /hpf BACTERIA RARE LAB L400.4350 Normal <or=2+ /hpf MUCUS, 0 SEEN URINE LAB L400.4900 Normal AMORPHOUS 1+ Performed By: #### L400.0001 #### [facility] [address] [place], [address] CBC W/DIFF, AUTOMATED Collected: 04/20/2018 Status: F Source: [place] 1:32 AM [facility] REPOSITORY TYPE CODE TESTS RESULT OUT OF RANGE REFERENCE UNITS LAB L100.1000 Normal 4.4-11.0 K/mm3 WBC 9.7 LAB L100.1200 Low 4.2-5.4 M/mm3 RBC 3.58 LAB L100.1300 Low 12.0-15.0 g/dl HGB 10.9 LAB L100.1400 Low 37-47 % HCT 32.8 LAB L100.1500 Normal 81-99 fL MCV 91.6 LAB L100.1600 Normal 27.0-32.0 pg MCH 30.4 LAB L100.1700 Normal 32-36 g/gl MCHC 33.2 LAB L100.1810 Normal 11.6-14.6 % RDW 13.4 CV LAB L100.1820 High 35.1-43.9 fl RDW 44.0 SD LAB L100.1900 Normal 150-450 K/mm3 PLT 277 LAB L100.2000 High 6.2-12.0 fl MPV 12.1 LAB L100.2100 High 47-70 % NEUT% 70.1 LAB L100.2200 Normal 19-41 % LY% 23.1 LAB L100.2300 Normal 0-10 % MONO% 5.6 LAB L100.2400 Normal 0-5 % EO% 0.6 LAB L100.2500 Normal 0-1 % BASO% 0.2 LAB L100.2550 Normal 0.0-0.9 % IM 0.400 GRAN % Result Comment: IG% - Immature Granulocytes (promyelocytes, myelocytes and metamyelocytes) > 1% indicates that a LEFT SHIFT is Present. LAB L100.2620 Normal 2.0-7.7 X10 3/uL Absolute Neut 6.8 LAB L100.2720 Normal 0.83-4.51 X10 3/ul Absolute Lymph 2.24 Performed By: #### L100.0100 #### [facility] [address] [place], [place], [address] COMPREHENSIVE METABOLIC Collected: 04/20/2018 Status: F Source: [facility] 1:32 AM [facility] REPOSITORY TYPE CODE TESTS RESULT OUT OF RANGE REFERENCE UNITS LAB L501.0100 Normal 74-106 mg/dL GLU 81 Result Comment: Please note revised GLUCOSE reference range effective 2017. LAB L501.1000 Normal 7-18 mg/dL BUN 9 LAB L501.1100 Normal 0.55-1.02 mg/dL CREAT,SERUM 0.57 Result Comment: The validity of the calculated GFR AND GFRAA in patients over 70 years has not been determined. Clinical correlation is essential. LAB L501.1110 Normal >60 mL/min EST GFR 128 Result Comment: Non- GFR Calc LAB L501.1115 Normal >60 mL/min EST GFR - AA 155 Result Comment: GFR Calc LAB L501.1255 Normal ml/min Estimated 125.14 CRCL LAB L501.1300 Normal 10-20 RATIO BUN/CRE 15.7 LAB L501.1500 Normal 6.4-8. g/dL T PROT 7.3 2 LAB L501.1800 Low 3.2-5. g/dL ALB 2.7 0 LAB L501.1950 High 2.2-4. g/dL GLOB 4.6 2 LAB L501.2000 Low 0.9-2. RATIO A/G 0.6 4 LAB L501.2200 Normal 8.5-10 mg/dL CA 8.8 .1 LAB L501.4100 Low 15-37 U/L AST 13 LAB L501.4305 Normal 45-117 U/L ALK P 91 LAB L501.4405 Normal 13-56 U/L ALT 18 LAB L501.4600 Low 0.20-1 mg/dL T BILI 0.10 .00 LAB L501.5300 Normal 136-14 mmol/L NA 137 5 LAB L501.5600 Normal 3.5-5. mmol/L K 3.8 1 LAB L501.5900 Normal 98-107 mmol/L CL 105 LAB L501.6100 Normal 21.0-3 mmol/L CO2 25.0 2.0 LAB L501.6200 Normal 5-15 GAP 7 Performed By: #### L500.4050 #### [facility] [address] [facility] [place], [address] EMERGENCY DEPARTMENT Observed: 03/25/2018 Status: F Source: [place] SUMMARY 7:15 PM [facility] REPOSITORY [facility] [address] [place], [place] [address]Mumiuwmal Department Ohifdnm77/24/18 1702#: [id number] Acct: [id number]: MURRAY QUINN Rep #: [id number]: 1985 33 From: Pipo Pritchett MDPCP: Care Physician, No Primary Status: REG ER- ER Visit SummaryDate of Service: 03/25/18Chief Complaint: Nausea, lightheadednessHistory of Present Illness: The patient is a 33 F presents to the emergency department withnausea and lightheadedness. The patient is currently 16 weeks gestation with twins. Statesover the past week, she feels like she has been dehydrated. Today, she was outside. Shestates she began to feel lightheaded. She denies any chest pain. She did not pass out. Fantahajulio césar had some mild abdominal cramping, but states his been constant throughout the .She is currently taking Phenergan and prenatals. She states she has been up all night becauseshe just found out that her ednvrf-dy-bbg has cancer and was admitted to the hospital. She hashad no vaginal bleeding or discharge. She denies any urinary symptoms. She is scheduled tosee [employer] [employer] [employer] in the morning.Physical Examination: Vital signs reviewedGeneral: Well-nourished, well-developedHead: Normocephalic, atraumaticEyes: Pupils equal and reactive, extraocular muscles intactNeck, supple, no lymphadenopathyHeart: Regular rate and rhythmRespiratory: No distress, clear bilaterallyAbdomen: Soft, nontender, nondistended, no peritoneal signsBack: NontenderExtremities: Nontender, no edema, no cordsSkin: Normal color no rashNeuro: Alert and oriented, no focal or lateralizing deficitsTest Results: []Emergency Department Course and Treatment: Patient was mildly tachycardic, but had no chestpain or dyspnea. Her abdominal exam is benign. Bedside ultrasound was performed. Patient hasconfirmed intrauterine twin . heart rates in the 140s and reactive. Patientwas given IV fluids. Screening labs are obtained. Patient was given 2 L of fluids. She wasalso given oral Tylenol. On reevaluation she is resting comfortably. She has had no furtherprogression of symptoms. She has had improvement. At this time, I do feel that she is safefor outpatient follow-up. She will be discharged home to follow-up with [employer] [employer] tomorrow asscheduled.Treatment Plan: []Disposition: DischargeImpression: 1. Dehydration 2. PregnancyThis note was generated with SoundFocus dictation software. It may contain incorrect words,spelling, and punctuation that were not noted in review of the chart prior to signingED Disposition- Plan for ED Patient:Chief Complaint: Nausea/Vomiting/DiarrheaInstructions: ED DehydrationReferrals:Deuce Ibarra MD [STAFF PHYSICIAN] -What to do if you have ProblemsFor any increased pain, shortness of breath, bleeding, nausea or vomiting, chest pain, or anyunexpected problems, contact your Primary Care Provider. Call [facility] ([phone])or report to the closest Emergency Room.Call 911 if necessary.03/25/18 1915 <Electronically signed by Pipo Pritchett MD>Date Pipo Pritchett MDCosigner Signature (If Indicated): Date CC: No Primary Care Physician URINALYSIS, COMPLETE Collected: 03/25/2018 Status: F Source: [place] 6:17 PM [facility] REPOSITORY Order Comment: How was Urine Obtained? WHARF HAND TO SPECIFY TYPE CODE TESTS RESULT OUT OF RANGE REFERENCE UNITS LAB L400.3000 Normal Yellow COLOR Yellow LAB L400.3050 Normal Clear CLARITY Clear LAB L400.3200 Normal Normal mg/dl GLUCOSE, UR Normal LAB L400.3300 Normal Negative mg/dL BILIRUBIN Negative URINE LAB L400.3400 Normal Negative mg/dl KETONE UR Negative LAB L400.3465 Normal 1.002-1.030 SP.GR. 1.010 DIPSTX LAB L400.3550 Normal 5.0 - 8.0 pH UR 7.0 LAB L400.3600 Normal Negative mg/dl PROT DIPSTX Negative LAB L400.3700 Normal Normal mg/dl UROBILI Normal LAB L400.3750 Normal Negative NITRITE UR Negative LAB L400.3780 Normal Negative /ul OCCULT Negative BLOOD-UR LAB L400.3800 Normal Negative /ul LEUK Negative ESTERASE LAB L400.4050 Normal 0-5 /hpf WBC 0 SEEN LAB L400.4100 Normal 0-5 /hpf RBC-UA 0 SEEN LAB L400.4150 Normal 5-10 /hpf SQUAM EPI 0-5 SEEN LAB L400.4300 Normal None Seen /hpf BACTERIA 0 SEEN LAB L400.4350 Normal <or=2+ /hpf MUCUS, 0 SEEN URINE Performed By: #### L400.0001 #### [facility] [address] [place], [address] CBC W/DIFF, AUTOMATED Collected: 03/25/2018 Status: F Source: AYDEN 5:20 PM [facility] REPOSITORY TYPE CODE TESTS RESULT OUT OF RANGE REFERENCE UNITS LAB L100.1000 Normal 4.4-11.0 K/mm3 WBC 10.0 LAB L100.1200 Low 4.2-5.4 M/mm3 RBC 3.78 LAB L100.1300 Low 12.0-15.0 g/dl HGB 11.0 LAB L100.1400 Low 37-47 % HCT 34.1 LAB L100.1500 Normal 81-99 fL MCV 90.2 LAB L100.1600 Normal 27.0-32.0 pg MCH 29.1 LAB L100.1700 Normal 32-36 g/gl MCHC 32.3 LAB L100.1810 Normal 11.6-14.6 % RDW 13.6 CV LAB L100.1820 High 35.1-43.9 fl RDW 44.7 SD LAB L100.1900 Normal 150-450 K/mm3 PLT 265 LAB L100.2000 Normal 6.2-12.0 fl MPV 12.0 LAB L100.2100 High 47-70 % NEUT% 78.8 LAB L100.2200 Low 19-41 % LY% 15.6 LAB L100.2300 Normal 0-10 % MONO% 5.0 LAB L100.2400 Normal 0-5 % EO% 0.4 LAB L100.2500 Normal 0-1 % BASO% 0.1 LAB L100.2550 Normal 0.0-0.9 % IM 0.100 GRAN % Result Comment: IG% - Immature Granulocytes (promyelocytes, myelocytes and metamyelocytes) > 1% indicates that a LEFT SHIFT is Present. LAB L100.2620 High 2.0-7.7 X10 3/uL Absolute Neut 7.9 LAB L100.2720 Normal 0.83-4.51 X10 3/ul Absolute Lymph 1.56 Performed By: #### L100.0100 #### [facility] [address] [place], [address] BASIC METABOLIC Collected: 03/25/2018 Status: F Source: AYDEN PROFILE (BMP) 5:[facility] TYPE CODE TESTS RESULT OUT OF RANGE REFERENCE UNITS LAB L501.0100 Normal 74-106 mg/dL GLU 89 Result Comment: Please note revised GLUCOSE reference range effective 2017. LAB L501.1000 Normal 7-18 mg/dL BUN 8 LAB L501.1100 Normal 0.55-1.02 mg/dL CREAT,SERUM 0.57 Result Comment: The validity of the calculated GFR AND GFRAA in patients over 70 years has not been determined. Clinical correlation is essential. LAB L501.1110 Normal >60 mL/min EST GFR 130 Result Comment: Non- GFR Calc LAB L501.1115 Normal >60 mL/min EST GFR - AA 157 Result Comment: GFR Calc LAB L501.1255 Normal ml/min Estimated 125.14 CRCL LAB L501.1300 Normal 10-20 RATIO BUN/CRE 14.1 LAB L501.2200 Normal 8.5-10 mg/dL CA 8.5 .1 LAB L501.5300 Normal 136-14 mmol/L NA 138 5 LAB L501.5600 Normal 3.5-5. mmol/L K 3.8 1 Result Comment: Slight Hemolysis, Result may be falsely increased. LAB L501.5900 Normal 98-107 mmol/L CL 107 LAB L501.6100 Normal 21.0-32.0 mmol/L CO2 25.0 LAB L501.6200 Normal 5-15 6 GAP Performed By: #### L500.2500 #### [facility] [address] [place], [address] EMERGENCY DEPARTMENT Observed: 02/28/2018 Status: F Source: [place] SUMMARY 12:20 AM [facility] REPOSITORY [facility] [id number] [facility] [place], [place] [address]Tzyxufeuv Department Miprwec45/29/18 1530MR#: [id number] Acct: [id number]: MURRAY LEE Rep #: [id number]: 1985 33 From: Kit Rondon DOPCP: Care Physician, No Primary Status: DEP ER- ER Visit SummaryDate of Service: 02/27/18Chief Complaint: Vomiting and diarrhea and History of Present Illness: The patient is a 33 F who states that she is 14 weeks withtwins. She sees Dr. Alejo for [employer]. The patient states that for the past 4 days she hashad diarrhea. She states that she has had difficulty with vomiting the entire andPhenergan had been helping up until a couple days ago. Now she notes a generalized headache.She denies any fevers or rashes. She states she has had 3 episodes of diarrhea today that havebeen very small amounts. She denies any neurologic symptoms.Physical Examination: 130/66 temperature is 98 heart rate of 94 respirations are 18 pulse ox is97% on room airGen: Well-nourished well-developedHead: Normocephalic atraumaticEyes: Perrl EOMIENT: TMs clear no rhinorrhea moist mucous membranesNeck: Supple no lymphadenopathy no JVD nontenderCVS: Regular rate rhythm no murmurs normal S1-Z9Ghcttgzalxs: No distress clear to auscultation bilaterally chest nontenderAbdomen: Soft nontender nondistended normal bowel sounds no massesBack: NontenderExtremity: Nontender no edemaSkin: Normal color no rashNeuro: alert orientated 3 CN II-XII intact normal strength sensation reflexes gait cerebellarPsych: Normal affect normal moodTest Results: C and a BMP showed a white count of 9 and hemoglobin 11.5. Urinalysis showed 50ketones 5-10 epithelial cells.Emergency Department Course and Treatment: Received 2 L of IV fluids as well as Reglan.Bedside ultrasound of the uterus demonstrated baby A with heart rate of 142 with goodactivity baby B had heart rate of 153 with good activity. Patient overall is improved.She is hungry. Patient will be discharged home follow-up with her OB/GYNImpression:1. Gastroenteritis2. Second trimester twin pregnancy3. CephalgiaThis note was generated with SoundFocus dictation software. It may contain incorrect words,spelling, and punctuation that were not noted in review of the chart prior to signingED Disposition- Plan for ED Patient:Disposition: Home or Assisted LivingChief Complaint: Nausea/Vomiting/DiarrheaInstructions: ED Vomiting Diarrhea Nonspecific AdReferrals:Deuce Ibarra MD [STAFF PHYSICIAN] - Keep Tika appointmentWhat to do if you have ProblemsFor any increased pain, shortness of breath, bleeding, nausea or vomiting, chest pain, or anyunexpected problems, contact your Primary Care Provider. Call [facility] ([phone])or report to the closest Emergency Room.Call 911 if necessary.02/28/18 0020 <Electronically signed by Kit Rondon DO>Date Kit Rondon DOCosigner Signature (If Indicated): Date CC: No Primary Care Physician CBC W/DIFF, AUTOMATED Collected: 02/27/2018 Status: F Source: AYDEN 2:04 PM [facility] REPOSITORY TYPE CODE TESTS RESULT OUT OF RANGE REFERENCE UNITS LAB L100.1000 Normal 4.4-11.0 K/mm3 WBC 9.0 LAB L100.1200 Low 4.2-5.4 M/mm3 RBC 3.93 LAB L100.1300 Low 12.0-15.0 g/dl HGB 11.5 LAB L100.1400 Low 37-47 % HCT 35.0 LAB L100.1500 Normal 81-99 fL MCV 89.1 LAB L100.1600 Normal 27.0-32.0 pg MCH 29.3 LAB L100.1700 Normal 32-36 g/gl MCHC 32.9 LAB L100.1810 Normal 11.6-14.6 % RDW 13.3 CV LAB L100.1820 Normal 35.1-43.9 fl RDW 43.9 SD LAB L100.1900 Normal 150-450 K/mm3 PLT 273 LAB L100.2000 Normal 6.2-12.0 fl MPV 12.0 LAB L100.2100 High 47-70 % NEUT% 80.1 LAB L100.2200 Low 19-41 % LY% 13.9 LAB L100.2300 Normal 0-10 % MONO% 5.5 LAB L100.2400 Normal 0-5 % EO% 0.3 LAB L100.2500 Normal 0-1 % BASO% 0.1 LAB L100.2550 Normal 0.0-0.9 % IM 0.100 GRAN % Result Comment: IG% - Immature Granulocytes (promyelocytes, myelocytes and metamyelocytes) > 1% indicates that a LEFT SHIFT is Present. LAB L100.2620 Normal 2.0-7.7 X10 3/uL Absolute Neut 7.2 LAB L100.2720 Normal 0.83-4.51 X10 3/ul Absolute Lymph 1.25 Performed By: #### L100.0100, L700.6800 #### [facility] [address] [place], [address] ,SERUM,HCG QUALI. Collected: Status: F Source: [place] 02/27/2018 2:04 PM [facility] REPOSITORY TYPE CODE TESTS RESULT OUT OF REFERENCE UNITS RANGE LAB L700.7000 High 0-9 Nonpreg Negative HCGSQUAL POSITIVE Result Comment: TEST is *POSITIVE* LAB L700.6700 Normal =>Qualitative mIU/mL HCG Qual triggr 60829 Performed By: #### L100.0100, L700.6800 #### [facility] [address] [place], [place], [address] URINALYSIS, COMPLETE Collected: 02/27/2018 Status: F Source: [place] 2:04 PM [facility] REPOSITORY Order Comment: Has pt arrived? YHow was Urine Obtained? WHARF HAND TO SPECIFY TYPE CODE TESTS RESULT OUT OF RANGE REFERENCE UNITS LAB L400.3000 Normal Yellow COLOR Yellow LAB L400.3050 Normal Clear CLARITY Sl. Cloudy LAB L400.3200 Normal Normal mg/dl GLUCOSE, UR Normal LAB L400.3300 Normal Negative mg/dL BILIRUBIN Negative URINE LAB L400.3400 High Negative mg/dl KETONE UR 50 LAB L400.3465 Normal 1.002-1.030 SP.GR. 1.025 DIPSTX LAB L400.3550 Normal 5.0 - 8.0 pH UR 5.0 LAB L400.3600 High Negative mg/dl PROT DIPSTX 15 LAB L400.3700 Normal Normal mg/dl UROBILI Normal LAB L400.3750 Normal Negative NITRITE UR Negative LAB L400.3780 High Negative /ul OCCULT 10 BLOOD-UR LAB L400.3800 High Negative /ul LEUK 25 ESTERASE LAB L400.4050 Normal 0-5 /hpf WBC 0-5 SEEN LAB L400.4100 Normal 0-5 /hpf RBC-UA 0-5 SEEN LAB L400.4150 Normal 5-10 /hpf SQUAM EPI 5-10 SEEN LAB L400.4300 Normal None Seen /hpf BACTERIA 2+ LAB L400.4350 Normal <or=2+ /hpf MUCUS, 1+ URINE Performed By: #### L400.0001 #### [facility] [address] [facility] [address] [address] [place], [place], [address] BASIC METABOLIC Collected: 02/27/2018 Status: F Source: [place] PROFILE (BMP) 2:04 PM [facility] REPOSITORY TYPE CODE TESTS RESULT OUT OF RANGE REFERENCE UNITS LAB L501.0100 Normal 74-106 mg/dL GLU 75 Result Comment: Please note revised GLUCOSE reference range effective 2017. LAB L501.1000 Normal 7-18 mg/dL BUN 8 LAB L501.1100 Normal 0.55-1.02 mg/dL CREAT,SERUM 0.57 Result Comment: The validity of the calculated GFR AND GFRAA in patients over 70 years has not been determined. Clinical correlation is essential. LAB L501.1110 Normal >60 mL/min EST GFR 129 Result Comment: Non- GFR Calc LAB L501.1115 Normal >60 mL/min EST GFR - AA 156 Result Comment: GFR Calc LAB L501.1255 Normal ml/min Estimated 125.14 CRCL LAB L501.1300 Normal 10-20 RATIO BUN/CRE 14.1 LAB L501.2200 Normal 8.5-10 mg/dL CA 9.1 .1 LAB L501.5300 Normal 136-14 mmol/L NA 136 5 LAB L501.5600 Normal 3.5-5. mmol/L K 3.9 1 LAB L501.5900 Normal 98-107 mmol/L CL 104 LAB L501.6100 Normal 21.0-3 mmol/L CO2 24.0 2.0 LAB L501.6200 Normal 5-15 GAP 8 Performed By: #### L500.2500 #### [facility] [address] [place], [address] URGENT CARE VISIT Observed: 02/13/2018 Status: F Source: AYDEN REPORT 6:16 PM [facility] REPOSITORY Now [address]rb[address] [id number] VISITDate of Service: 02/13/18MR#: [id number] Acct: [id number]: MURRAY LEE Rep #: [id number]: 1985 Provider: Ramon Cordova/Sex: 33/F [place] [facility] [place]NOWStatus: SignedIntakeVital Signs02/13/18 Height 5 ft 6 in02/13/18 Weight: 266 lb02/13/18 Body Mass Index (BMI) 42.905 Blood Pressure 136/88IntakeVisit Reasons: MIGRAINESInterpreter Required: NoIs patient in pain?: YesAllergiesNo Known Allergies Allergy (Verified 02/13/18 17:44)Medicationsacetaminophen 325 mg tablet 500 mg PO Q6H PRN 09/06/17 [History Confirmed 02/13/18]PFSHMedical History Asthma (Acute)Difficulty balancing (Acute)History of febrile seizure (Acute)SOB (shortness of breath) (Acute)Surgical History History of cholecystectomy (Acute)History of tonsillectomy and adenoidectomy (Acute)Family History Other AsthmaCancerSocial HistorySmoking Status: Current every day smokeralcohol intake: current alcohol intake frequency: holidays/special occasions onlyHPIHPIDetails: MURRAY LEE, is a 33 F who is 12 weeks presents to the office today forcomplaints of migraine and vomiting. Patient states that she has had the migraine forapproximately last 24 hours without relief. She has tried taking Tylenol 1000 mg withoutrelief. Patient does state that she has had sounds and light sensitivity. She also reportsvomiting once this morning and intermittent nausea. She denies any hematemesis. She has nohistory of hypertension or eclampsia/preeclampsia. She has had no difficulties with hercurrent . She denies fever, chills, sweats. No diarrhea or change in her stools. Noshortness of breath or difficulty breathing. No other associated symptoms oralleviating/aggravating factors.ROSConstConstitutional: Positive for headache(s);no chills, fever(s), fatigue or abnormal sleep patternEyesEyes: Positive for light sensitivity;no blurry vision or double visionENTENT: Positive for headache(s);no ear pain, dizziness/vertigo, sore throat, sinus pressure, nasal congestion or nasaldischargeRespRespiratory: No shortness of breath or chest congestionCardioCardiology: No chest pain at rest, chest pain with exertion or shortness of breathGastroGI: Positive for vomiting and nausea/dyspepsia;no abdominal pain, diarrhea, blood in stool, incontinent of stools, Vomiting blood/hematemesis,coffee ground emesis, constipation or change in bowel habitsMuscMusculoskeletal: No tingling, numbness or abnormal walkingSkinSkin: No wounds or lesionsNeuroNeurology: Positive for headache(s);no behavioral changes, confusion, fainting, tingling, numbness, unsteady gait/balance orabnormal walkingPsychPsychiatric: No behavioral changes, No confusion, No abnormal sleep patternEndoEndocrine: No fatigueExamConstGeneral: cooperative, healthy appearingHENMTHead: normocephalic, atraumaticEars: hearing grossly normal bilaterally, TM's normal bilaterally, EAC's normalNose: external nose normalFace and sinus: face symmetric, normal facial examMouth: oral mucosae normalThroat: posterior oropharynx normalEyesGeneral: appearance normal, both eyes and all related structuresPupils: PERRLRespEffort AND Inspection: normal respiratory effortAuscultation: Bilateral: Clear to AuscultationCardioPalpation: normal PMIRate: regular rateRhythm: regular rhythmGIInspection: normal to inspectionAuscultation: normal bowel soundsPalpation: soft, no hepatosplenomegaly, nontenderSkinGeneral: no rashes or lesions notedNeuroGeneral: alert, CN's II-XI intact bilaterallyCognition: normal cognitionSpeech: speech normalGait: normal gaitMotor: muscle tone normal throughout, strength 5/5 throughoutSensory Exam: no sensory deficits notedPsychAppearance: grossly normalMental Status: mental status grossly normalMood: congruent moodSpeech and Movement: speech and movement normalAttitude: cooperativeThought Process: normalThought Content: normalJudgment: judgment goodAssessment AND PlanProblems1. Intractable migraine with aura without status migrainosus G43.194DyojdeRsqwj2. Non-intractable vomiting with nausea, unspecified vomiting type R11.2StatusAcutePlanPatient advised that due to her being she should follow-up with her [employer] for furtherevaluation and treatment of her migraines. He is also been advised to continue with thetreatment of the headache with Tylenol not to exceed 4000 mg in a 24-hour period. He is alsobeen advised to use the antinausea medication given to her by her [employer]. Patient advised ofpotential red flags when appropriate report to the ED. Patient verbalized understanding of allthe above.CodingLevel of Care CodeOff vis,est,level 3DiagnosesIntractable migraine with aura without status migrainosus G43.119Migraine type: with auraStatus migrainosus presence: without status migrainosusIntractability: intractableNon-intractable vomiting with nausea, unspecified vomiting type R11.2Vomiting type: unspecifiedVomiting Intractability: non-intractableNausea presence: with /15/181815 <Electronically signed by Ramon Rodas PA>Date Ramon Rodas PACosigner Signature: Date (if applicable)CC: URINE DRUG SCREEN Collected: 01/29/2018 Status: F Source: AYDEN (VISTA) 4:32 PM [facility] REPOSITORY Order Comment: List of Drugs Taken or Suspected? UNK TYPE CODE TESTS RESULT OUT OF RANGE REFERENCE UNITS LAB L505.0075 Normal TO BE CONFIRMED Result Comment: CONFIRMATORY TESTING FOR ALL POSITIVE URINE DRUG SCREEN RESULTS WILL ONLY BE SENT OUT UPON PHYSICIAN ORDER. VISTA Urine Drug Screen methods provide only preliminary analytical test results. A more specific alternate chemical method must be used in order to obtain a confirmed analytical result. Gas chromatography/mass spectrometery (GC/MS) is the preferred confirmatory method. Clinical consideration and professional judgement should be applied to any drug of abuse test result, particularly when preliminary positive results are used. URINE TCA TESTING MUST BE ORDERED SEPARATELY. USE TEST MNEMONIC: UTCA LAB L505.5005 Normal VISTA UDS PH 5 LAB L505.5015 Normal <1000 AMPHETAMINES NEGATIVE ng/mL LAB L505.5025 Normal < 200 BARBITIURATES NEGATIVE ng/mL LAB L505.5035 Normal < 200 BENZODIAZIPINE NEGATIVE ng/mL LAB L505.5045 Normal < 300 COCAINE NEGATIVE ng/mL LAB L505.5055 Normal < 500 ECSTACY NEGATIVE ng/mL LAB L505.5065 Normal < 300 METHADONE NEGATIVE ng/mL LAB L505.5075 Normal < 300 OPIATES NEGATIVE ng/mL LAB L505.5085 Normal < 25 PCP NEGATIVE ng/mL LAB L505.5095 Normal < 50 THC NEGATIVE ng/mL Performed By: #### L505.5000 #### [facility] [address] [place], [address] CBC W/DIFF, AUTOMATED Collected: 01/29/2018 Status: F Source: [place] 4:32 PM [facility] REPOSITORY TYPE CODE TESTS RESULT OUT OF RANGE REFERENCE UNITS LAB L100.1000 High 4.4-11.0 K/mm3 WBC 11.6 LAB L100.1200 Low 4.2-5.4 M/mm3 RBC 4.15 LAB L100.1300 Normal 12.0-15.0 g/dl HGB 12.1 LAB L100.1400 Normal 37-47 % HCT 37.3 LAB L100.1500 Normal 81-99 fL MCV 89.9 LAB L100.1600 Normal 27.0-32.0 pg MCH 29.2 LAB L100.1700 Normal 32-36 g/gl MCHC 32.4 LAB L100.1810 Normal 11.6-14.6 % RDW 13.1 CV LAB L100.1820 Normal 35.1-43.9 fl RDW 42.9 SD LAB L100.1900 Normal 150-450 K/mm3 PLT 287 LAB L100.2000 High 6.2-12.0 fl MPV 13.1 LAB L100.2100 High 47-70 % NEUT% 76.5 LAB L100.2200 Low 19-41 % LY% 17.7 LAB L100.2300 Normal 0-10 % MONO% 5.1 LAB L100.2400 Normal 0-5 % EO% 0.3 LAB L100.2500 Normal 0-1 % BASO% 0.1 LAB L100.2550 Normal 0.0-0.9 % IM 0.300 GRAN % Result Comment: IG% - Immature Granulocytes (promyelocytes, myelocytes and metamyelocytes) > 1% indicates that a LEFT SHIFT is Present. LAB L100.2620 High 2.0-7.7 X10 3/uL Absolute Neut 8.9 LAB L100.2720 Normal 0.83-4.51 X10 3/ul Absolute Lymph 2.05 Performed By: #### L100.0100 #### [facility] [place], [place], [id number] THYROID STIM HORMONE Collected: 01/29/2018 Status: F Source: [place] (TSH) 4:32 PM [facility] REPOSITORY TYPE CODE TESTS RESULT OUT OF RANGE REFERENCE UNITS LAB L501.9520 Low 0.358-3.74 uIU/mL TSH 0.17 Performed By: #### L501.9520 #### [facility] [address] [place], [place], [id number] RUBELLA IGG Collected: 01/29/2018 Status: F Source: [place] 4:32 PM [facility] REPOSITORY TYPE CODE TESTS RESULT OUT OF RANGE REFERENCE UNITS LAB L509.4000 Normal IU/mL Rubella 75.8 IgG Result Comment: Antibody results Interpretation of Immune Status < 5 IU/ml Presumed Non-immune 5 - < 10 IU/ml Equivocal > or = 10 IU/ml Presumed Immune Performed By: #### L509.4000, L3890.6005 #### [facility] [address] [place], [address] HIV - [facility] Collected: 01/29/2018 Status: F Source: [place] 4:32 PM [facility] REPOSITORY TYPE CODE TESTS RESULT OUT OF RANGE REFERENCE UNITS LAB L3890.6005 Normal Nonreactive HIV - WC Non-Reactive Performed By: #### L509.4000, L3890.6005 #### [facility] [address] [place], [address] T AND S-NO Collected: 01/29/2018 Status: F Source: [place] CHARGE W/PNP 4:32 PM [facility] REPOSITORY Order Comment: Reason for Type AND Screen/Red Cells: PRENATALSurgery? N TYPE CODE TESTS RESULT OUT OF RANGE REFERENCE UNITS LAB B10.0800 Normal BLOOD O TYPE GEL POSITIVE LAB B100.4050 Normal Ab NEGATIVE SCREEN GEL Performed By: #### B100.7550 #### [facility] [address] [place], [place], [id number] URINALYSIS, ROUTINE Collected: 01/29/2018 Status: F Source: AYDEN (DIPSTICK) 4:32 PM [facility] REPOSITORY Order Comment: How was Urine Obtained? Urine, Random TYPE CODE TESTS RESULT OUT OF RANGE REFERENCE UNITS LAB L400.3000 Normal Yellow COLOR Yellow LAB L400.3050 Normal Clear CLARITY Cloudy LAB L400.3200 Normal Normal mg/dl GLUCOSE, UR Normal LAB L400.3300 Normal Negative mg/dL BILIRUBIN Negative URINE LAB L400.3400 Normal Negative mg/dl KETONE UR Negative LAB L400.3465 Normal 1.002-1.030 SP.GR. 1.030 DIPSTX LAB L400.3550 Normal 5.0 - 8.0 pH UR 5.0 LAB L400.3600 Normal Negative mg/dl PROT DIPSTX Negative LAB L400.3700 Normal Normal mg/dl UROBILI Normal LAB L400.3750 Normal Negative NITRITE UR Negative LAB L400.3780 Normal Negative /ul OCCULT Negative BLOOD-UR LAB L400.3800 Normal Negative /ul LEUK Negative ESTERASE Performed By: #### L400.2010 #### [facility] [address] [place], [place], [address] HEPATITIS B SURFACE Collected: 01/29/2018 Status: F Source: AY[place] AG 4:32 PM [facility] REPOSITORY TYPE CODE TESTS RESULT OUT OF RANGE REFERENCE UNITS LAB L3100.0400 Normal Negative HB Negative SURF AG Result Comment: Performed at: [facility] [id number] Razor Grinder: Suraj Egan PhD, Phone: [phone] Performed By: #### L3100.0390, L3100.0625 #### [facility] (refer to report for specific site) refer to report for address and phone number HEPATITIS C ANTIBODIES Collected: 01/29/2018 Status: F Source: AYDEN 4:32 PM [facility] REPOSITORY TYPE CODE TESTS RESULT OUT OF RANGE REFERENCE UNITS LAB L3100.0650 Normal 0.0-0.9 s/co ratio HEP C <0.1 AB Result Comment: Negative: < 0.8 Indeterminate: 0.8 - 0.9 Positive: > 0.9 The CDC recommends that a positive HCV antibody result be followed up with a HCV Nucleic Acid Amplification test (629502). Performed By: #### L3100.0390, L3100.0625 #### [facility] (refer to report for specific site) refer to report for address and phone number RPR Collected: 01/29/2018 Status: F Source: AYDEN 4:32 PM [facility] REPOSITORY TYPE CODE TESTS RESULT OUT OF REFERENCE UNITS RANGE LAB L700.5100 Normal NONREACTIVE NONREACTIVE RPR Performed By: #### L700.5100 #### [facility] [address] [place], [place], [address] CT/NG H BY PCR Collected: 01/08/2018 Status: F Source: AYDEN 3:00 PM [facility] REPOSITORY TYPE CODE TESTS RESULT OUT OF RANGE REFERENCE UNITS LAB L8200.2100 Normal Negative Negative Chlam Trac PCR LAB L8200.2200 Normal Negative NG Negative by PCR Performed By: #### L8200.2000 #### [facility] [address] [place], [place], [address] OFFICE VISIT REPORT Observed: 09/06/2017 Status: F Source: AYDEN 7:08 AM [place], [place] [address]SIUBME VISITStatus: SignedPatient: MURRAY QUINN Date of Service: 09/06/17 MR#: [id number]: 1985 Provider: Familia WESTFALL Acct: [id number]/Sex: 32/F Loc: [facility].NOWcc:IntakeVital Signs09/06/17 Height 5 ft 6 inIntakeVisit Reasons: CoughIs patient in pain?: NoAllergiesNo Known Allergies Allergy (Verified 09/06/17 06:43)Medicationsacetaminophen 325 mg tablet 500 mg PO Q6H PRN 09/06/17 [History Confirmed 09/06/17]levofloxacin 500 mg tablet 500 mg PO Q24H 10 Days #10 tab 09/06/17 [Rx Confirmed 09/06/17]PFSHMedical HistoryOtitis media (Acute)Sinusitis (Acute)Asthma (Acute)Difficulty balancing (Acute)History of febrile seizure (Acute)SOB (shortness of breath) (Acute)Chest pain (Inactive)Surgical HistoryHistory of cholecystectomy (Acute)History of tonsillectomy and adenoidectomy (Acute)Family HistoryOther AsthmaCancerSocial HistorySmoking Status: Current every day smokeralcohol intake: current alcohol intake frequency: holidays/special occasions onlyHPICough:Chief Complaint: Facial pressure, bilateral ear pain, chillsDetails: MURRAY LEE, is a 32 F who presents to the office today for evaluation of facialpressure, bilateral ear pain and chills. Patient notes she has had approximately 6 weekhistory of what she feels is a sinus infection. She notes [facility] symptoms therefore followed upwith them again about 3 weeks ago where she was prescribed Augmentin noticing her symptoms hadimproved remarkably but then returned after approximately 2 days. She now notes moderatesevere aching facial pressure, continuous postnasal drip, bilateral ear pressure. She notes noother associated symptoms no other alleviating or aggravating factors.ROSConstConstitutional: Positive for chills;no excessive sweating, abnormal sleep pattern, body ache, fatigue or headache(s)EyesEyes: No change in visionENTENT: Positive for ear pain, ear pressure, post nasal drip, sinus pressure and nasal discharge;no abnormal hearing, ear discharge, hearing loss or headache(s)RespRespiratory: No cough or chest congestionCardioCardiology: No chest pain at rest, chest pain with exertion, excessive sweating, shortness ofbreath, dyspnea on exertion, irregular heart rhythm, generalized swelling or leg pain withexertionGastroGI: No abdominal pain, change in stool character or change in bowel habitsMuscMusculoskeletal: No joint pain, back pain or limited range of motionSkinSkin: No change in hair or soresNeuroNeurology: No abnormal hearing, abnormal speech, abnormal movements or headache(s)PsychPsychiatric: No abnormal sleep patternEndoEndocrine: No excessive sweating, change in body appearance, cold intolerance, heat intoleranceor fatigueAller/ImmAllergy/Immunologic: No food intoleranceHema/LympHematologic/Lymphatic: No easy bruisingExamConstGeneral: cooperative, healthy appearing, comfortableNutritional Appearance: well nourishedOrientation: alert, awake, oriented q0Zrxndvpeoop: mental status not alteredHENMTHead: normal to inspectionEars: hearing grossly normal bilaterally, external ears normal, TM's abnormal bilaterally (Withboth TMs erythematous and bulging), EAC's normal, mastoids normalNose: external nose normal, nares normalFace and sinus: normal facial exam, sinuses nontender (Bilateral frontal and ethmoid sinustenderness to palpation)Mouth: oral mucosae normalTeeth and gingiva: dentition normal, gingiva normalThroat: posterior oropharynx normal (With exudative postnasal drip visual lysed)EyesGeneral: appearance normal, both eyes and all related structuresPeriorbital: periorbital findings normalEyelids: eyelids normalConjunctivae: conjunctivae normalEOM: EOM intact bilaterallyNeckNeck: normal visual inspectionNeck mass: NoThyroid: thyroid normalChestChest palpation AND inspection: normal inspection of the chestRespEffort AND Inspection: normal respiratory effort, able to speak in complete sentences, symmetricchest movement, no coughAuscultation: Bilateral: Clear to AuscultationCardioPalpation: normal PMIRate: regular rateRhythm: regular rhythmHeart Sounds: S1 normal, S2 normal, no gallops, no murmurs, no rubsPulses: radial pulses presentGIInspection: normal to inspectionPalpation: softNeuroGeneral: alert, awake, oriented [id number]: normal cognitionSpeech: speech normalGait: normal gaitPsychAppearance: grossly normalMental Status: mental status grossly normalMood: congruent moodAffect: normal affectSpeech and Movement: speech and movement normalAttitude: cooperativeThought Process: normalThought Content: normalJudgment: judgment goodAssessment AND PlanProblems1. Otitis media H66.902. Sinusitis J32.9PlanTake Levaquin as prescribed.Clear fluids, rest, Advil/Tylenol, warm facial compresses as instructed.Follow-up with PCP in 3-5 days should symptoms not improved, sooner should symptoms worsen orany other concerns develop.Patient states acknowledging understanding all the above.MedicationsNew:Discontinued:CodingLevel of Care CodeOff ken lopez,level 4DiagnosesOtitis media H66.90Chronicity: acuteSinusitis J32.912/03/18 0708 <Electronically signed by Familia Arshad PA>Date Familia Arshad PACosigner Signature (if applicable): Date CC: Status: ALLERGIES ALLERGIES DATE TYPE / CODE NAME / CODE REACTION SEVERITY SOURCE 05/03/2018 Drug No Known Unknown [facility] Allergy/4160 Allergies/F00 [facility] 73785(SNOMED [id number](RXNOR Repository CT) M) ENCOUNTERS ENCOUNTERS ADMIT/DISCHARGE ACCOUNT ADMITTING ENCOUNTER LOCATION SOURCE NUMBER CLASS 07/02/2018 [id number] Ambulatory [facility] ing:WPOUT Repository 06/11/2018 [id number] Ambulatory [facility] ing:WOBLAB Repository 05/03/2018/ [id number] Emergency [facility] 8 [facility] ing:ED Repository 04/20/2018/ [id number] Emergency Ayden [facility] 8 4 [facility] ing:ED Repository 03/25/2018/ [id number] Emergency Ayden [facility] 8 8 [facility] ing:ED Repository 02/27/2018/ [id number] Emergency [facility] 8 [facility] ing:ED Repository 02/13/2018/ [id number] Ambulatory BMSBuilding:B [facility] 8 5 [place] Repository 01/29/2018 [id number] Ambulatory Ayden [facility] 8 [facility] ing:WOBLAB Repository 01/24/2018/ [id number] Ambulatory [facility] 8 6 [facility] ing:MEDOUTP Repository 01/08/2018 [id number] Ambulatory [facility] 3 [facility] ing:LABSPEC Repository 09/06/2017/ [id number] Ambulatory BMSBuilding:B [facility] 7 8 [place].[facility] Repository PAYERS PAYERS ENCOUNTER GUARANTOR PAYER SUBSCRIBER SOURCE 07/02/2018 MURRAY D Primary MURRAY D [facility] [id number] Insurance:TOM THIBODEAUX: [facility] [id number] [facility] Medical [facility] [address]Wiv: PLANPolicy Number: Repository [id number] (HP) Date:8002-84-22XS [address] [place] [address] 35219GZ: 07/02/2018 Secondary NOT GIVENUNK Ayden Insurance:SELF PAY [facility] Number: Effective Repository Date:2018-07-02 06/11/2018 MURRAY D Primary MURRAY D Ayden [id number] Insurance:TOM CHANEYETONB: [facility] [id number] County Medical Center [address]Pwk: PLANPolicy Number: Repository [id number] (HP) Date:8570-76-72SK [address] [place] [address] 89221NB: 06/11/2018 Secondary NOT GIVENUNK [facility] Insurance:SELF PAY [facility] Number: Effective Repository Date:2018-06-11 05/03/2018 MURRAY D Primary MURRAY D Ayden [id number] Insurance:BUCKEYE SHINGLETONDOB: [facility] [id number] County Medical Center [address]Ayw: PLANPolicy Number: Repository [id number] (HP) Date:5701-31-03VK [facility] [facility] [place] [address]DN: 05/03/2018 Secondary NOT GIVENUNK Ayden Insurance:SELF PAY [facility] Number: Effective Repository Date:2018-05-03 04/20/2018 MURRAY D Primary MURRAY D [facility] [id number] Insurance:BUCKEYE SHINGLETONDOB: [facility] [id number] County Medical Center [address]Mfc: PLANPolicy Number: Repository [id number] (HP) Date:2032-69-69CB [address] [place] [address] 91809UD: 04/20/2018 Secondary NOT GIVENUNK Ayden Insurance:SELF PAY [facility] Number: Effective Repository Date:2018-04-20 03/25/2018 MURRAY D Primary MURRAY D [facility] [id number] MARGARET Insurance:BUCKEYE SHINGLETONDOB: [facility] [id number] Hospital [address]Ipw: [phone]) PLANPolicy Number: Repository [phone] () [id number] Date:4106-18-99TW [address] [place] [address] 30462AH: 03/25/2018 Secondary NOT GIVENUNK Ayden Insurance:SELF PAY [facility] Number: Effective Repository Date:2018-03-25 02/27/2018 MURRAY D Primary MURRAY D [facility] [id number] MARGARET Insurance:BUCKEYE BAKERDOB: [facility] [id number] Hospital [address]Tdk: (330) PLANPolicy Number: Repository [phone] () [id number] Date:5170-58-15YN [address] JossyNINA [place] [address]BE: 02/27/2018 Secondary NOT GIVENUNK [facility] Insurance:SELF PAY [facility] Number: Effective Repository Date:2018-02-27 02/13/2018 MURRAY D Primary MURRAY D Ayden [id number] MARGARET Insurance:BUCKEYE BAKERDOB: [facility] [id number] [address]Tel: (330) PLANPolicy Number: Repository [phone] () [id number] Date:1614-42-60PF [address] [place], [place] [address]NINA COLON [address]SD: 02/13/2018 Secondary NOT GIVENUNK [facility] Insurance:SELF PAY [facility] Number: Effective Repository Date:2018-02-13 01/29/2018 MURRAY D Primary MURRAY D Ayden [id number] WELLS Insurance:BUCKEYE BAKERDOB: [facility] [id number] Ville [address]Tel: (330) PLANPolicy Number: Repository [phone] () [id number] Date:6493-33-03DA [address] [place], [place] [address] [address]W[place]: 01/29/2018 Secondary NOT GIVENUNK Ayden Insurance:SELF PAY [facility] Number: Effective Repository Date:2018-01-29 01/24/2018 MURRAY D [id number] Primary MURRAY D [facility] [address] Insurance:BUCKEYE BAKERDOB: [address] [id number] Hospital [address]Hfu: (330) PLANPolicy Number: Repository [phone] () [id number] Date:1442-42-99OK BOX [facility] Clinic[facility] [address]YU: 01/24/2018 Secondary NOT GIVENUNK Hopkins Insurance:SELF PAY [facility] Number: Effective Repository Date:2018-01-24 01/08/2018 MURRAY [id number] Primary MURRAY BAKERDOB: [facility] [address] Insurance:BUCKEYE [id number] [address]Lnv: 330 PLANPolicy Number: Repository [phone] () [id number] Date:5394-59-76ZY [address] N[place] [address]WI: 01/08/2018 Secondary NOT GIVENUNK Ayden Insurance:SELF PAY [facility] Number: Effective Repository Date:2018-01-08 09/06/2017 MURRAY Primary MURRAY [facility] [id number] Insurance:TOM MONTANAINDIRAPATODOB: [facility] [id number] PLANPolicy Number: Repository [id number]: 330 [id number] [phone] () Date:8813-67-35CL [address] [place] [address] [place] [address]YU: 09/06/2017 Secondary NOT GIVENUNK Ayden Insurance:SELF PAY [facility] Number: Effective Repository Date:2017-09-06
[2018-07-02 15:22] LABS: Hematocrit 30.9 % (37-47); Hemoglobin 10.3 g/dl (12.0-15.0); Mean Corp Hgb Conc 33.3 g/gl (32-36); Mean Corpuscular Hgb 30.1 pg (27.0-32.0); Mean Corpuscular Volume 90.4 fL (81-99); Mean Platelet Vol. 12.5 fl (6.2-12.0); Platelet Count 229 K/mm3 (150-450); RBC Distribution Width CV 13.3 % (11.6-14.6); Red Blood Count 3.42 M/mm3 (4.2-5.4); Scan Indicated on CBC? Y/N NO; White Blood Count 8.7 K/mm3 (4.4-11.0)
[2018-07-02 15:31] LABS: Protein, Urine (Random) 17.6 mg/dL (<11.9); Protein:Creat Ratio 123 mg/g CRE (0-200)
[2018-07-02 15:34] LABS: Prothrombin Time (Protime)PT. 12.7 SECONDS (11.7-14.9)
[2018-07-02 15:35] LABS: AST(SGOT) 12 U/L (15-37); Alanine Aminotransfer ALT/SGPT 18 U/L (13-56); Creatinine, Serum 0.53 mg/dL (0.55-1.02); EST Glomerular Filtration Rate 139 mL/min (>60); Est Glom Filt Rate - Afr Amer 168 mL/min (>60); Estimated Creatinine Clearance 134.58 ml/min; Partial Thromboplast Time 27.2 Seconds (24.1-36.2); Uric Acid 3.4 mg/dL (2.6-6.0)
--- NOTE | 2018-07-05 09:26 | OB.TRI.NOTE ---
History of Present Illness Reason For Visit: RULE OUT PIH Date of Service: 07/02/18 Final CIERRA: 09/03/18 Gestational age: 31 Weeks and 0 Days History of Present Illness: Patient is at 31 weeks gestation with severe headache in the office. care remarkable for twin gestation. Blood pressures have been normal. Sent to labor and delivery for monitoring and to check PIH labs before discharge home. Allergies No Known Allergies Allergy (Verified 05/03/18 13:10) - Pertinent Past Medical History Medical History: Past Medical History (Last Reviewed 02/13/18 @ 17:45 by Muna Domingo) Asthma Difficulty balancing History of febrile seizure SOB (shortness of breath) Surgical History: Past Surgical History (Last Reviewed 02/13/18 @ 17:45 by Muna Domingo) History of cholecystectomy History of tonsillectomy and adenoidectomy NST - FHR Rate Baby A NST Reactive:: Yes FHR Category:: Category I - FHR Rate Baby B NST Reactive:: Yes FHR Category:: Category I Impression/Plan Twin intrauterine at 31 weeks gestation in patient with headache. No evidence of PIH after monitoring blood pressures and checking PIH labs. Headache lessened after on labor and delivery. Will release to home with routine instructions. Will start twice weekly NSTs at 32 weeks.
--- NOTE | 2018-07-05 09:29 | OB.TRI.HP_ITS ---
History of Present Illness Reason For Visit: RULE OUT PIH Date of Service: 07/02/18 Final CIERRA: 09/03/18 Gestational age: 31 Weeks and 0 Days History of Present Illness: Patient is at 31 weeks gestation with severe headache in the office. care remarkable for twin gestation. Blood pressures have been normal. Sent to labor and delivery for monitoring and to check PIH labs before discharge home. Allergies No Known Allergies Allergy (Verified 05/03/18 13:10) - Pertinent Past Medical History Medical History: Past Medical History (Last Reviewed 02/13/18 @ 17:45 by Muna Domingo) Asthma Difficulty balancing History of febrile seizure SOB (shortness of breath) Surgical History: Past Surgical History (Last Reviewed 02/13/18 @ 17:45 by Muna Domingo) History of cholecystectomy History of tonsillectomy and adenoidectomy NST - FHR Rate Baby A NST Reactive:: Yes FHR Category:: Category I - FHR Rate Baby B NST Reactive:: Yes FHR Category:: Category I Impression/Plan Twin intrauterine at 31 weeks gestation in patient with headache. No evidence of PIH after monitoring blood pressures and checking PIH labs. He adache lessened after on labor and delivery. Will release to home with routine instructions. Will start twice weekly NSTs at 32 weeks.
== END 2018-07-02 16:10 | disposition home or self-care (01) ==
LOC: WPOUT 14:35 → WP 14:36
PROVIDERS: Visit Provider Obstetrics & Gynecology
DX: O26.893 Other specified pregnancy related conditions, third trimester (principal); R51 Headache; O30.003 Twin pregnancy, unspecified number of placenta and unspecified number of amniotic sacs, third trimester; J45.909 Unspecified asthma, uncomplicated; Z3A.31 31 weeks gestation of pregnancy
CPT/HCPCS: 36415; 59025; 59050; 82565; 82570; 84156; 84450; 84460; 84550; 85027; 85610; 85730; 99218; G0378

== ENCOUNTER 2018-07-05 10:55 | Outpatient (CLI) | payer MEDICAID, SELFPAY ==
[2018-07-05 11:36] VITALS: BMI 49.4
--- NOTE | 2018-07-16 10:06 | OB.TRI.NOTE ---
History of Present Illness Date of Service: 07/05/18 Was patient seen by the physician?: No Reason For Visit: NST Date of Service: 07/05/18 Final CIERRA: 09/03/18 Final CIERRA Source: US <20 weeks Gestational age: 31+ weeks History of Present Illness: 31+ week intrauterine presents for nonstress test for twin gestation. Allergies No Known Allergies Allergy (Verified 05/03/18 13:10) - Pertinent Past Medical History Medical History: Past Medical History (Last Reviewed 02/13/18 @ 17:45 by Muna Domingo) Asthma Difficulty balancing History of febrile seizure SOB (shortness of breath) Surgical History: Past Surgical History (Last Reviewed 02/13/18 @ 17:45 by Muna Domingo) History of cholecystectomy History of tonsillectomy and adenoidectomy NST - FHR Rate Baby A NST Reactive:: Yes FHR Category:: Category I - FHR Rate Baby B NST Reactive:: Yes FHR Category:: Category I Impression/Plan 31+ week intrauterine with twin gestation with reactive nonstress test x2. Continuing routine follow-up and twice weekly nonstress testing.
== END 2018-07-05 12:15 | disposition home or self-care (01) ==
LOC: WPOUT 11:02 → WP 11:02
PROVIDERS: Referring Provider Obstetrics & Gynecology; Visit Provider Obstetrics & Gynecology
DX: O30.003 Twin pregnancy, unspecified number of placenta and unspecified number of amniotic sacs, third trimester (principal); J45.909 Unspecified asthma, uncomplicated; Z3A.31 31 weeks gestation of pregnancy
CPT/HCPCS: 59025; 59050; 99218; G0378

== ENCOUNTER 2018-07-09 14:05 | Outpatient (CLI) | payer MEDICAID, SELFPAY ==
[2018-07-09 15:04] VITALS: BMI 50.1
--- NOTE | 2018-07-11 08:16 | OB.TRI.NOTE ---
History of Present Illness Date of Service: 07/09/18 Was patient seen by the physician?: No Reason For Visit: NONSTRESS TEST Date of Service: 07/09/18 Final CIERRA: 09/03/18 Gestational age: 32 Weeks and 0 Days History of Present Illness: 33 yo [id number] female at 32 wk for scheduled twin NST. Has appt in office after this NST for sono and PNV. Allergies No Known Allergies Allergy (Verified 05/03/18 13:10) - Pertinent Past Medical History Medical History: Past Medical History (Last Reviewed 02/13/18 @ 17:45 by Muna Domingo) Asthma Difficulty balancing History of febrile seizure SOB (shortness of breath) Surgical History: Past Surgical History (Last Reviewed 02/13/18 @ 17:45 by Muna Domingo) History of cholecystectomy History of tonsillectomy and adenoidectomy NST - FHR Rate Baby A Baseline: 150 with accels to 170s Variability:: Moderate, Marked Decelerations:: None NST Reactive:: Appropriate for gestational age FHR Category:: Category I - FHR Rate Baby B Baseline: 140s with accels to 170s Variability:: Moderate Accelerations:: 15 x 15 Decelerations:: Variable - to 120 Impression/Plan 32 wk twin IUP. Reactive twin NST To ofc for scheduled appt continue NSTs, growth sonos until delivery
--- NOTE | 2018-07-11 08:26 | OB.TRI.HP_ITS ---
History of Present Illness Date of Service: 07/09/18 Was patient seen by the physician?: No Reason For Visit: NONSTRESS TEST Date of Service: 07/09/18 Final CIERRA: 09/03/18 Gestational age: 32 Weeks and 0 Days History of Present Illness: 33 yo [id number] female at 32 wk for scheduled twin NST. Has appt in office after this NST for sono and PNV. Allergies No Known Allergies Allergy (Verified 05/03/18 13:10) - Pertinent Past Medical History Medical History: Past Medical History (Last Reviewed 02/13/18 @ 17:45 by Muna Domingo) Asthma Difficulty balancing History of febrile seizure SOB (shortness of breath) Surgical History: Past Surgical History (Last Reviewed 02/13/18 @ 17:45 by Muna Domingo) History of cholecystectomy History of tonsillectomy and adenoidectomy NST - FHR Rate Baby A Baseline: 150 with accels to 170s Variability:: Moderate, Marked Decelerations:: None NST Reactive:: Appropriate for gestational age FHR Category:: Category I - FHR Rate Baby B Baseline: 140s with accels to 170s Variability:: Moderate Accelerations:: 15 x 15 Decelerations:: Variable - to 120 Impression/Plan 32 wk twin IUP. Reactive twin NST To ofc for scheduled appt continue NSTs, growth sonos until delivery
== END 2018-07-09 15:00 | disposition home or self-care (01) ==
LOC: WPOUT 14:09 → WP 14:25
PROVIDERS: Referring Provider Obstetrics & Gynecology; Visit Provider Obstetrics & Gynecology
DX: O30.003 Twin pregnancy, unspecified number of placenta and unspecified number of amniotic sacs, third trimester (principal); Z3A.32 32 weeks gestation of pregnancy
CPT/HCPCS: 59025; 99218; G0378

== ENCOUNTER 2018-07-13 10:57 | Outpatient (CLI) | payer MEDICAID, SELFPAY ==
[2018-07-13 11:26] VITALS: BMI 50.6
--- NOTE | 2018-07-15 19:31 | OB.TRI.NOTE ---
History of Present Illness Date of Service: 07/13/18 Was patient seen by the physician?: No Reason For Visit: NONSTRESS TEST Date of Service: 07/13/18 Final CIERRA: 09/03/18 Final CIERRA Source: US <20 weeks Gestational age: 32 Weeks and 4 Days History of Present Illness: 33 yo female at 32 AB2 female with twin IUP for scheduled NST. C/O occasional dizzy spells Allergies No Known Allergies Allergy (Verified 05/03/18 13:10) - Pertinent Past Medical History Medical History: Past Medical History (Last Reviewed 02/13/18 @ 17:45 by Muna Domingo) Asthma Difficulty balancing History of febrile seizure SOB (shortness of breath) Surgical History: Past Surgical History (Last Reviewed 02/13/18 @ 17:45 by Muna Domingo) History of cholecystectomy History of tonsillectomy and adenoidectomy NST - FHR Rate Baby A Baseline: 130-140s avg variability. Accels to 170s Variability:: Moderate Accelerations:: 15 x 15 Decelerations:: None NST Reactive:: Yes, Appropriate for gestational age FHR Category:: Category I Uterine Activity:: no UCs noted. - FHR Rate Baby B Baseline: 140s avg variability accels to 170 Variability:: Moderate Accelerations:: 15 x 15 Decelerations:: None NST Reactive:: Yes, Appropriate for gestational age FHR Category:: Category I Uterine Activity:: No UCs. Impression/Plan Twin IUP at 32 4/7 Reactive NST both RTO as scheduled for next visit. Sono, INDIGO Continue NSTs as planned at [facility].
--- NOTE | 2018-07-15 19:36 | OB.TRI.HP_ITS ---
History of Present Illness Date of Service: 07/13/18 Was patient seen by the physician?: No Reason For Visit: NONSTRESS TEST Date of Service: 07/13/18 Final CIERRA: 09/03/18 Final CIRERA Source: US <20 weeks Gestational age: 32 Weeks and 4 Days History of Present Illness: 33 yo female at 32 AB2 female with twin IUP for scheduled NST. C/O occasional dizzy spells Allergies No Known Allergies Allergy (Verified 05/03/18 13:10) - Pertinent Past Medical History Medical History: Past Medical History (Last Reviewed 02/13/18 @ 17:45 by Muna Domingo) Asthma Difficulty balancing History of febrile seizure SOB (shortness of breath) Surgical History: Past Surgical History (Last Reviewed 02/13/18 @ 17:45 by Muna Domingo) History of cholecystectomy History of tonsillectomy and adenoidectomy NST - FHR Rate Baby A Baseline: 130-140s avg variability. Accels to 170s Variability:: Moderate Accelerations:: 15 x 15 Decelerations:: None NST Reactive:: Yes, Appropriate for gestational age FHR Category:: Category I Uterine Activity:: no UCs noted. - FHR Rate Baby B Baseline: 140s avg variability accels to 170 Variability:: Moderate Accelerations:: 15 x 15 Decelerations:: None NST Reactive:: Yes, Appropriate for gestational age FHR Category:: Category I Uterine Activity:: No UCs. Impression/Plan Twin IUP at 32 4/7 Reactive NST both RTO as scheduled for next visit. Sono, INDIGO Continue NSTs as planned at [facility].
== END 2018-07-13 12:10 | disposition home or self-care (01) ==
LOC: WPOUT 10:59 → WP 11:00
PROVIDERS: Referring Provider Obstetrics & Gynecology; Visit Provider Obstetrics & Gynecology
DX: O30.003 Twin pregnancy, unspecified number of placenta and unspecified number of amniotic sacs, third trimester (principal); Z3A.32 32 weeks gestation of pregnancy; J45.909 Unspecified asthma, uncomplicated
CPT/HCPCS: 59025; 99218; G0378

== ENCOUNTER 2018-07-16 09:45 | Outpatient (CLI) | payer MEDICAID, SELFPAY ==
[2018-07-16 10:20] VITALS: BMI 50.2
--- NOTE | 2018-07-16 20:56 | OB.TRI.NOTE ---
History of Present Illness Date of Service: 07/16/18 Was patient seen by the physician?: No Reason For Visit: NST TWINS Date of Service: 07/16/18 Final CIERRA: 09/03/18 Final CIERRA Source: US <20 weeks Gestational age: 33 Weeks and 0 Days History of Present Illness: 33-week intrauterine with twin gestation presents for routine nonstress test. Allergies No Known Allergies Allergy (Verified 05/03/18 13:10) - Pertinent Past Medical History Medical History: Past Medical History (Last Reviewed 02/13/18 @ 17:45 by Muna Domingo) Asthma Difficulty balancing History of febrile seizure SOB (shortness of breath) Surgical History: Past Surgical History (Last Reviewed 02/13/18 @ 17:45 by Muna Domingo) History of cholecystectomy History of tonsillectomy and adenoidectomy NST - FHR Rate Baby A NST Reactive:: Yes FHR Category:: Category I - FHR Rate Baby B NST Reactive:: Yes FHR Category:: Category I Impression/Plan 33-week with twin gestation with reactive nonstress test x2 with twins. Continuing twice weekly nonstress test and routine follow-up.
== END 2018-07-16 11:40 | disposition home or self-care (01) ==
LOC: WPOUT 09:55 → WP 09:56
PROVIDERS: Referring Provider Obstetrics & Gynecology; Visit Provider Obstetrics & Gynecology
DX: O30.003 Twin pregnancy, unspecified number of placenta and unspecified number of amniotic sacs, third trimester (principal); J45.909 Unspecified asthma, uncomplicated; Z3A.33 33 weeks gestation of pregnancy
CPT/HCPCS: 59025; 59050; 99218; G0378

== ENCOUNTER 2018-07-17 09:15 | Outpatient (CLI) | payer MEDICAID, SELFPAY ==
[2018-07-17 09:50] VITALS: BMI 50.5
[2018-07-17] MEDS: Acetaminophen 500 MG Tablet PO (11:12)
[2018-07-17] MEDS: Lactated Ringers 1,000 ML 999 ML IV (12:25)
[2018-07-17] MEDS: NIFEdipine 10 MG Capsule PO (12:38)
[2018-07-17 12:43] LABS: Absolute Lymphocyte Count 1.22 X10^3/ul (0.83-4.51); Absolute Neutrophil Count 6.8 X10^3/uL (2.0-7.7); Eosinophil# 0.02 X10^3/uL; Eosinophils% 0.2 % (0-5); Hematocrit 32.8 % (37-47); Hemoglobin 10.6 g/dl (12.0-15.0); Lymphocyte # 1.22 X10^3/ul (4.0); Lymphocyte % 14.4 % (19-41); Mean Corp Hgb Conc 32.3 g/gl (32-36); Mean Corpuscular Hgb 28.6 pg (27.0-32.0); Mean Corpuscular Volume 88.4 fL (81-99); Mean Platelet Vol. 12.3 fl (6.2-12.0); Monocyte# 0.38 X10^3/uL; Monocyte% 4.5 % (0-10); Neutrophil # 6.81 X10^3/uL (2.7-7.7); Neutrophil % 80.7 % (47-70); Platelet Count 251 K/mm3 (150-450); RBC Distribution Width CV 13.2 % (11.6-14.6); RBC Distribution Width SD 42.8 fl (35.1-43.9); Red Blood Count 3.71 M/mm3 (4.2-5.4); White Blood Count 8.5 K/mm3 (4.4-11.0)
[2018-07-17 12:44] LABS: POSITIVE COUNT NO; POSITIVE DIFFERENTIAL NO; POSITIVE MORPHOLOGY NO
[2018-07-17 13:15] LABS: Fibrinogen 663 mg/dl (203-444); International Normalized Ratio 0.9; Partial Thromboplast Time 28.9 Seconds (24.1-36.2); Prothrombin Time (Protime)PT. 12.4 SECONDS (11.7-14.9)
[2018-07-17 13:49] VITALS: BP 130/62; PULSE 90; RESP 18; TEMP 36.8; O2SAT 98
--- NOTE | 2018-07-23 07:18 | OB.TRI.HP_ITS ---
History of Present Illness Date of Service: 07/17/18 Was patient seen by the physician?: Yes Reason For Visit: FALL 33 WEEKS Date of Service: 07/17/18 Final CIERRA Source: US <20 weeks History of Present Illness: 33 yo female at 33 wk with twin IUP Concordant growth and planned C/S for breech presentation of both twins. Presents after fall onto buttocks from standing position. Scraped her R thigh and small abrasion and bruise present. NST reactive yesterday. +FM Some crampiness, abdominal discomfort. No abdominal trauma. Allergies No Known Allergies Allergy (Verified 07/19/18 22:58) - Pertinent Past Medical History Medical History: Past Medical History (Last Reviewed 02/13/18 @ 17:45 by Muna Domingo) Asthma Difficulty balancing History of febrile seizure SOB (shortness of breath) Surgical History: Past Surgical History (Last Reviewed 02/13/18 @ 17:45 by Muna Domingo) History of cholecystectomy History of tonsillectomy and adenoidectomy Laboratory Studies: Laboratory Tests 07/17/18 07/17/18 07/17/18 Range/Units 12:25 12:25 12:25 WBC 8.5 (4.4-11.0) K/mm3 RBC 3.71 L (4.2-5.4) M/mm3 Hgb 10.6 L (12.0-15.0) g/dl Hct 32.8 L (37-47) % MCV 88.4 (81-99) fL MCH 28.6 (27.0-32.0) pg MCHC 32.3 (32-36) g/gl RDW 13.2 (11.6-14.6) % RDW Differential 42.8 (35.1-43.9) fl Plt Count 251 (150-450) K/mm3 MPV 12.3 H (6.2-12.0) fl Immature Gran % (Auto) 0.200 (0.0-0.9) % Neut % (Auto) 80.7 H (47-70) % Lymph % (Auto) 14.4 L (19-41) % [place] % (Auto) 4.5 (0-10) % Eos % (Auto) 0.2 (0-5) % Baso % (Auto) 0.0 (0-1) % Absolute Neuts (auto) 6.8 (2.0-7.7) X10^3/uL Absolute Lymphs (auto) 1.22 (0.83-4.51) X10^3/ul Total Counted Not Reportable PT 12.4 (11.7-14.9) SECONDS INR 0.9 APTT 28.9 (24.1-36.2) Seconds Fibrinogen 663 H (203-444) mg/dl Blood Type O POSITIVE Antibody Screen NEGATIVE Review of Systems Gastrointestinal: Reports: Abdominal Pain - crampiness Gynecological: Denies: Vaginal bleeding Physical Exam Vitals: Vital Signs Temp Pulse Resp BP Pulse Ox 98.2 F 90 18 130/62 H 98 07/17/18 13:49 07/17/18 13:49 07/17/18 13:49 07/17/18 13:49 07/17/18 13:49 General: Alert, Oriented x3, Cooperative, No apparent distress HEENT: Atraumatic, EOMI Abdomen: Soft, Non Tender, Gravid Extremities:: Other - abrasion noted R outer thigh Neurological: Cranial nerves II-XII grossly intact Presentation: Breech - BR-Br on last sono in ofc. Cervix Dilation (cm): 0 Effacement (%): 0 NST - FHR Rate Baby A Variability:: Moderate Accelerations:: 15 x 15 Decelerations:: None NST Reactive:: Yes, Appropriate for gestational age FHR Category:: Category I Uterine Activity:: No regular UCs noted. - FHR Rate Baby B Variability:: Moderate Accelerations:: 15 x 15 Decelerations:: None NST Reactive:: Yes, Appropriate for gestational age FHR Category:: Category I Impression/Plan 33 twin IUP breech-breech. S/P fall onto buttocks, no abdominal trauma. Pt with CC of crampiness. IV fluids given, Single dose of Procardia 10 mg po x one. Cervix closed No regular UCs No vaginal bleeding. NST reactive on both HOME to rest. Tylenol, warm bath, heating pad prn to back, hips. Keep next ofc appt as scheduled. NST to continue until delivery, as scheduled/planned.
== END 2018-07-17 14:10 | disposition home or self-care (01) ==
LOC: WPOUT 09:19 → WP 09:20
PROVIDERS: Referring Provider Obstetrics & Gynecology; Visit Provider Obstetrics & Gynecology
DX: O30.003 Twin pregnancy, unspecified number of placenta and unspecified number of amniotic sacs, third trimester (principal); O32.1XX1 Maternal care for breech presentation, fetus 1; O32.1XX2 Maternal care for breech presentation, fetus 2; O9A.213 Injury, poisoning and certain other consequences of external causes complicating pregnancy, third trimester; S70.11XA Contusion of right thigh, initial encounter; W19.XXXA Unspecified fall, initial encounter; Y93.9 Activity, unspecified; Y92.9 Unspecified place or not applicable; Y99.9 Unspecified external cause status; J45.909 Unspecified asthma, uncomplicated; Z90.49 Acquired absence of other specified parts of digestive tract; Z3A.33 33 weeks gestation of pregnancy
CPT/HCPCS: 59025; 59050; 85025; 85384; 85610; 85730; 86850; 86900; 99218; J7120; G0378

== ENCOUNTER 2018-07-19 22:00 | Outpatient (CLI) | payer MEDICAID, SELFPAY ==
[2018-07-19 22:46] LABS: Mucous, Urine 0 SEEN /hpf (<or=2+)
[2018-07-19 22:59] VITALS: BMI 50.6
[2018-07-19] MEDS: Acetaminophen 500 MG Tablet 1000 MG PO (23:08)
[2018-07-19 23:09] LABS: ROM Internal Control Test YES-OK TO RESULT pt. (Internal QC); ROM Patient Test Negative (Negative)
[2018-07-19 23:42] LABS: Color, Urine Yellow (Yellow); Glucose, Dipstick Normal (Normal); Ketone-Dipstick 5 mg/dl (Negative); Leukocyte Esterase-Dipstick 100 /ul (Negative); Nitrite-Dipstick Negative (Negative); Occult Blood-Urine 25 /ul (Negative); Protein-Dipstick 15 mg/dl (Negative); Specific Gravity, Urine 1.015 (1.002-1.030); Urine Bilirubin Dipstick Negative (Negative); Urine Clarity Sl. Cloudy (Clear); Urine Urobilinogen Normal (Normal)
[2018-07-19 23:57] LABS: Bacteria RARE /hpf (None Seen); Red Blood Cells-Urine 0-5 SEEN /hpf (0-5); Squamous Epithelial Cells - UA 25-50 SEEN /hpf (5-10); White Blood Cells 0-5 SEEN /hpf (0-5)
--- NOTE | 2018-07-20 06:49 | OB.TRI.HP_ITS ---
History of Present Illness Date of Service: 07/19/18 Was patient seen by the physician?: No Reason For Visit: R/O SROM Date of Service: 07/19/18 Final CIERRA: 09/03/18 Final CIERRA Source: US <20 weeks Gestational age: 33 Weeks and 3 Days History of Present Illness: 33+ week intrauterine twin gestation presents with possible rupture of membranes. Patient has noted some clear fluid this evening when she is sitting. Seems to leak out. Denies any increasing contractions and good movement is noted. Allergies No Known Allergies Allergy (Verified 07/19/18 22:58) - Pertinent Past Medical History Medical History: Past Medical History (Last Reviewed 02/13/18 @ 17:45 by Muna Domingo) Asthma Difficulty balancing History of febrile seizure SOB (shortness of breath) Surgical History: Past Surgical History (Last Reviewed 02/13/18 @ 17:45 by Muna Domingo) History of cholecystectomy History of tonsillectomy and adenoidectomy Laboratory Studies: Laboratory Tests 07/19/18 07/19/18 Range/Units 22:30 22:24 Urine Color Yellow (Yellow) Urine Clarity Sl. Cloudy (Clear) Urine pH 7.0 (5.0 - 8.0) Ur Specific [place] 1.015 (1.002-1.030) Urine Protein 15 H (Negative) mg/dl Urine Glucose (UA) Normal (Normal) mg/dl Urine Ketones 5 H (Negative) mg/dl Urine Occult Blood 25 H (Negative) /ul Urine Nitrite Negative (Negative) Urine Bilirubin Negative (Negative) mg/dL Urine Urobilinogen Normal (Normal) mg/dl Ur Leukocyte Esterase 100 H (Negative) /ul Urine RBC 0-5 SEEN (0-5) /hpf Urine WBC 0-5 SEEN (0-5) /hpf Ur Squamous Epith Cells 25-50 SEEN (5-10) /hpf Urine Bacteria RARE (None Seen) /hpf Urine Mucus 0 SEEN (<or=2+) /hpf Vag Amniotic Fld Detect Negative (Negative) NST - FHR Rate Baby A NST Reactive:: Yes FHR Category:: Category I - FHR Rate Baby B NST Reactive:: Yes FHR Category:: Category I Impression/Plan 33+ week intrauterine twin gestation with some vaginal discharge. ROM test was negative. Reactive nonstress test x2. Routine home-going instructions given.
== END 2018-07-20 00:25 | disposition home or self-care (01) ==
LOC: WPOUT 22:32 → WP 22:33
PROVIDERS: Visit Provider Obstetrics & Gynecology
DX: O30.003 Twin pregnancy, unspecified number of placenta and unspecified number of amniotic sacs, third trimester (principal); N89.8 Other specified noninflammatory disorders of vagina; J45.909 Unspecified asthma, uncomplicated; Z3A.33 33 weeks gestation of pregnancy
CPT/HCPCS: 59025; 59050; 81001; 84112; 99218; G0378

== ENCOUNTER 2018-07-23 12:45 | Outpatient (CLI) | payer MEDICAID, SELFPAY ==
[2018-07-23 13:29] VITALS: BMI 51.7
--- NOTE | 2018-07-23 22:01 | OB.TRI.NOTE ---
History of Present Illness Date of Service: 07/23/18 Was patient seen by the physician?: No Reason For Visit: NST Date of Service: 07/23/18 Final CIERRA: 09/03/18 Final CIERRA Source: US <20 weeks Gestational age: 34 Weeks and 0 Days History of Present Illness: 34-week twin intrauterine who presents for routine nonstress test. Allergies No Known Allergies Allergy (Verified 07/19/18 22:58) - Pertinent Past Medical History Medical History: Past Medical History (Last Reviewed 02/13/18 @ 17:45 by Muna Domingo) Asthma Difficulty balancing History of febrile seizure SOB (shortness of breath) Surgical History: Past Surgical History (Last Reviewed 02/13/18 @ 17:45 by Muna Domingo) History of cholecystectomy History of tonsillectomy and adenoidectomy NST - FHR Rate Baby A FHR Category:: Category I - FHR Rate Baby B FHR Category:: Category I Impression/Plan 34-week intrauterine with twin gestation with reactive nonstress test x2. Continuing routine nonstress test twice weekly. Released to home with routine instructions.
== END 2018-07-23 13:40 | disposition home or self-care (01) ==
LOC: WPOUT 12:59 → WP 13:29
PROVIDERS: Referring Provider Obstetrics & Gynecology; Visit Provider Obstetrics & Gynecology
DX: O30.003 Twin pregnancy, unspecified number of placenta and unspecified number of amniotic sacs, third trimester (principal); Z3A.34 34 weeks gestation of pregnancy
CPT/HCPCS: 59025; 59050; 99218; G0378

== ENCOUNTER 2018-07-24 19:40 | Outpatient (CLI) | payer MEDICAID, SELFPAY ==
[2018-07-24 20:08] VITALS: BMI 51.2
[2018-07-24 21:10] VITALS: RESP 18
--- NOTE | 2018-07-26 12:28 | OB.TRI.NOTE ---
History of Present Illness Date of Service: 07/24/18 Was patient seen by the physician?: No Reason For Visit: FALL Date of Service: 07/24/18 Final CIERRA: 09/03/18 Final CIERRA Source: US <20 weeks Gestational age: 34 Weeks and 1 Days History of Present Illness: 33 yo [id number] female at 34 1/7 wk EGA presents after falling onto hands and knees going up porch steps. No abdominal trauma. No bruising. Feeling FM. C/O mild ORO but declines any med for this. Allergies No Known Allergies Allergy (Verified 07/26/18 11:24) - Pertinent Past Medical History Medical History: Past Medical History (Last Reviewed 02/13/18 @ 17:45 by Muna Domingo) Asthma Difficulty balancing History of febrile seizure SOB (shortness of breath) Surgical History: Past Surgical History (Last Reviewed 02/13/18 @ 17:45 by Muna Domingo) History of cholecystectomy History of tonsillectomy and adenoidectomy Physical Exam Vitals: Vital Signs Resp 18 07/24/18 21:10 NST - FHR Rate Baby A Baseline: 140-150s avg variables to 120 Accels to 170-180s Variability:: Moderate Decelerations:: Variable NST Reactive:: Yes, Appropriate for gestational age FHR Category:: Category I Uterine Activity:: No regular UCs noted - FHR Rate Baby B Baseline: 130-140s avg variability. accels to 170s Variability:: Moderate Accelerations:: 15 x 15 Decelerations:: Variable - variable x two to 110 less than 10-20 sec each NST Reactive:: Yes, Appropriate for gestational age FHR Category:: Category I Impression/Plan 34 1/7 wk twin IUP. S/P fall onto hands and knees on steps. Reactive NST both Home. RTO as scheduled for next PNV. NSTs as scheduled.
== END 2018-07-24 21:10 | disposition home or self-care (01) ==
LOC: WP 20:46 → WPOUT 20:50 → WP 20:51
PROVIDERS: Referring Provider Obstetrics & Gynecology; Visit Provider Obstetrics & Gynecology
DX: O30.003 Twin pregnancy, unspecified number of placenta and unspecified number of amniotic sacs, third trimester (principal); J45.909 Unspecified asthma, uncomplicated; R51 Headache; O9A.213 Injury, poisoning and certain other consequences of external causes complicating pregnancy, third trimester; W10.9XXA Fall (on) (from) unspecified stairs and steps, initial encounter; Y93.9 Activity, unspecified; Y92.9 Unspecified place or not applicable; Y99.9 Unspecified external cause status; Z3A.34 34 weeks gestation of pregnancy
CPT/HCPCS: 59025; 59050; 99218; G0378

== ENCOUNTER 2018-07-26 10:50 | Outpatient (CLI) | payer MEDICAID, SELFPAY ==
[2018-07-26 11:23] VITALS: BMI 51.7
[2018-07-26 11:42] VITALS: BP 124/80; PULSE 93; RESP 20; TEMP 36.4; O2SAT 98
--- NOTE | 2018-07-27 18:50 | OB.TRI.NOTE ---
- Problem List (1) with 34 completed weeks gestation Status: Acute (2) Dichorionic diamniotic twin gestation Status: Acute Qualifiers: Trimester: third trimester Qualified Code(s): O30.043 - Twin , dichorionic/diamniotic, third trimester History of Present Illness Date of Service: 07/26/18 Was patient seen by the physician?: No Reason For Visit: NST Final CIERRA: 09/03/18 Final CIERRA Source: US <20 weeks Gestational age: 34 Weeks and 3 Days History of Present Illness: 33yo @ 34 3/7wga with dichorionic diamnionic twin gestation for scheduled NST. Allergies No Known Allergies Allergy (Verified 07/26/18 11:24) - Pertinent Past Medical History Medical History: Past Medical History (Last Reviewed 02/13/18 @ 17:45 by Muna Domingo) Asthma Difficulty balancing History of febrile seizure SOB (shortness of breath) Surgical History: Past Surgical History (Last Reviewed 02/13/18 @ 17:45 by Muna Domingo) History of cholecystectomy History of tonsillectomy and adenoidectomy Physical Exam Vitals: Vital Signs Temp Pulse Resp BP Pulse Ox 97.5 F L 93 20 H 124/80 H 98 07/26/18 11:42 07/26/18 11:42 07/26/18 11:42 07/26/18 11:42 07/26/18 11:42 NST - FHR Rate Baby A Baseline: 150 Variability:: Moderate Accelerations:: 15 x 15 Decelerations:: Early NST Reactive:: Yes FHR Category:: Category I Uterine Activity:: 0/10 - FHR Rate Baby B Baseline: 150 Variability:: Moderate Accelerations:: None Decelerations:: None NST Reactive:: Yes FHR Category:: Category I Uterine Activity:: 0/10
== END 2018-07-26 11:40 | disposition home or self-care (01) ==
LOC: WPOUT 11:00 → WP 11:01
PROVIDERS: Referring Provider Obstetrics & Gynecology; Visit Provider Obstetrics & Gynecology
DX: O30.043 Twin pregnancy, dichorionic/diamniotic, third trimester (principal); J45.909 Unspecified asthma, uncomplicated; Z90.49 Acquired absence of other specified parts of digestive tract; Z3A.34 34 weeks gestation of pregnancy
CPT/HCPCS: 59025; 59050; 99218; G0378

== ENCOUNTER 2018-07-29 12:05 | Outpatient (CLI) | payer MEDICAID, SELFPAY ==
[2018-07-29 12:23] VITALS: BMI 51.7
--- NOTE | 2018-07-29 23:55 | OB.TRI.NOTE ---
- Problem List (1) with 34 completed weeks gestation Status: Acute (2) Dichorionic diamniotic twin gestation Status: Acute Qualifiers: Trimester: third trimester History of Present Illness Date of Service: 07/29/18 Was patient seen by the physician?: No Reason For Visit: DECREASE MOVEMENT Final CIERRA: 09/03/18 Final CIERRA Source: US <20 weeks Gestational age: 34 Weeks and 6 Days History of Present Illness: 33yo @ 34 6/7wga with dichorionic diamnionic twin gestation presents for scheduled NST. Allergies No Known Allergies Allergy (Verified 08/05/18 20:18) - Pertinent Past Medical History Medical History: Past Medical History (Last Reviewed 02/13/18 @ 17:45 by Muna Domingo) Asthma Difficulty balancing History of febrile seizure SOB (shortness of breath) Surgical History: Past Surgical History (Last Reviewed 02/13/18 @ 17:45 by Muna Domingo) History of cholecystectomy History of tonsillectomy and adenoidectomy NST - FHR Rate Baby A Baseline: 150 Variability:: Moderate Accelerations:: 15 x 15 Decelerations:: None NST Reactive:: Yes FHR Category:: Category I Uterine Activity:: 0/10 - FHR Rate Baby B Baseline: 140 Variability:: Moderate Accelerations:: 15 x 15 Decelerations:: None NST Reactive:: Yes FHR Category:: Category I Uterine Activity:: 0/10 Impression/Plan 33yo with dichorionic diamnionic twin gestation Reactive NST x 2 d/c home
== END 2018-07-29 13:15 | disposition home or self-care (01) ==
LOC: WPOUT 12:22 → WP 12:25
PROVIDERS: Visit Provider Obstetrics & Gynecology
DX: O30.043 Twin pregnancy, dichorionic/diamniotic, third trimester (principal); J45.909 Unspecified asthma, uncomplicated; Z90.49 Acquired absence of other specified parts of digestive tract; Z3A.34 34 weeks gestation of pregnancy
CPT/HCPCS: 59025; 59050; 99218; G0378

== ENCOUNTER 2018-07-30 14:15 | Outpatient (CLI) | payer MEDICAID, SELFPAY ==
[2018-07-30 14:29] VITALS: BMI 51.5
--- NOTE | 2018-08-01 09:30 | OB.TRI.NOTE ---
History of Present Illness Was patient seen by the physician?: No Reason For Visit: NST Date of Service: 07/30/18 Final CIERRA: 09/03/18 Final CIERRA Source: US <20 weeks Gestational age: 35 Weeks and 0 Days History of Present Illness: 35-week twin intrauterine for routine nonstress test. Allergies No Known Allergies Allergy (Verified 07/29/18 12:24) - Pertinent Past Medical History Medical History: Past Medical History (Last Reviewed 02/13/18 @ 17:45 by Muna Domingo) Asthma Difficulty balancing History of febrile seizure SOB (shortness of breath) Surgical History: Past Surgical History (Last Reviewed 02/13/18 @ 17:45 by Muna Domingo) History of cholecystectomy History of tonsillectomy and adenoidectomy NST - FHR Rate Baby A NST Reactive:: Yes FHR Category:: Category I - FHR Rate Baby B NST Reactive:: Yes FHR Category:: Category I Impression/Plan 35-week intrauterine gestation with twin for routine nonstress test. Reactive x2. Continuing routine care and twice weekly nonstress testing.
== END 2018-07-30 15:00 | disposition home or self-care (01) ==
LOC: WPOUT 14:18 → WP 14:19
PROVIDERS: Referring Provider Obstetrics & Gynecology; Visit Provider Obstetrics & Gynecology
DX: O30.003 Twin pregnancy, unspecified number of placenta and unspecified number of amniotic sacs, third trimester (principal); J45.909 Unspecified asthma, uncomplicated; Z3A.35 35 weeks gestation of pregnancy
CPT/HCPCS: 59025; 59050; 99218; G0378

== ENCOUNTER 2018-08-03 12:05 | Outpatient (CLI) | payer MEDICAID, SELFPAY ==
[2018-08-03 12:17] VITALS: BMI 51.7
--- NOTE | 2018-08-06 12:56 | OB.TRI.NOTE ---
History of Present Illness Date of Service: 08/03/18 Was patient seen by the physician?: No Reason For Visit: NST Date of Service: 08/03/18 Final CIERRA: 09/03/18 Final CIERRA Source: US <20 weeks Gestational age: 35 Weeks and 4 Days History of Present Illness: 33 yo [id number] female at 35 4/7 wk EGA with twin IUP presents for scheduled twin NST. Planned C/S delivery due to breech - breech presentation. Allergies No Known Allergies Allergy (Verified 08/05/18 20:18) - Pertinent Past Medical History Medical History: Past Medical History (Last Reviewed 02/13/18 @ 17:45 by Muna Domingo) Asthma Difficulty balancing History of febrile seizure SOB (shortness of breath) Surgical History: Past Surgical History (Last Reviewed 02/13/18 @ 17:45 by Muna Domingo) History of cholecystectomy History of tonsillectomy and adenoidectomy NST - FHR Rate Baby A Baseline: 140-150 with accels to 180s Variability:: Moderate Accelerations:: 15 x 15 Decelerations:: None NST Reactive:: Yes, Appropriate for gestational age FHR Category:: Category I Uterine Activity:: irriability Occasional UC noted - FHR Rate Baby B Baseline: 140-150s avg with accels to 170 to 180 Variability:: Moderate Accelerations:: 15 x 15 Decelerations:: Variable NST Reactive:: Yes, Appropriate for gestational age FHR Category:: Category I Uterine Activity:: uterine irritability. occ UC Impression/Plan 35 4/7 wk with reactive twin NST Home Continue NSTs twice weekly F/U appt in office as planned. Delivery by C / S for breech presentation planned
== END 2018-08-03 12:55 | disposition home or self-care (01) ==
LOC: WPOUT 12:14 → WP 12:14
PROVIDERS: Referring Provider Obstetrics & Gynecology; Visit Provider Obstetrics & Gynecology
DX: O30.003 Twin pregnancy, unspecified number of placenta and unspecified number of amniotic sacs, third trimester (principal); O32.1XX0 Maternal care for breech presentation, not applicable or unspecified; J45.909 Unspecified asthma, uncomplicated; Z90.49 Acquired absence of other specified parts of digestive tract; Z3A.35 35 weeks gestation of pregnancy
CPT/HCPCS: 59025

== ENCOUNTER 2018-08-05 19:10 | Outpatient (CLI) | payer MEDICAID, SELFPAY ==
[2018-08-05 20:20] VITALS: BMI 51.2
[2018-08-05 20:56] LABS: ROM Internal Control Test YES-OK TO RESULT pt. (Internal QC); ROM Patient Test Negative (Negative)
--- NOTE | 2018-08-06 13:03 | OB.TRI.NOTE ---
History of Present Illness Date of Service: 08/05/18 Was patient seen by the physician?: No Reason For Visit: RULE OUT LABOR Date of Service: 08/05/18 Final CIERRA: 09/03/18 Final CIERRA Source: US <20 weeks Gestational age: 35 6/7 wk EGA History of Present Illness: 33 yo [id number] female anahy 35 6/7 wk presents with CC of UCs. ?SROM Twin IUP. Breech - breech and planning primary C/S delivery Allergies No Known Allergies Allergy (Verified 08/05/18 20:18) - Pertinent Past Medical History Medical History: Past Medical History (Last Reviewed 02/13/18 @ 17:45 by Muna Domingo) Asthma Difficulty balancing History of febrile seizure SOB (shortness of breath) Surgical History: Past Surgical History (Last Reviewed 02/13/18 @ 17:45 by Muna Domingo) History of cholecystectomy History of tonsillectomy and adenoidectomy Laboratory Studies: Laboratory Tests 08/05/18 Range/Units 20:15 Vag Amniotic Fld Detect Negative (Negative) Physical Exam Cervix Dilation (cm): 0 - very high, unengaged Station: -3 Effacement (%): 0 NST - FHR Rate Baby A Baseline: 150s with accels to 180s Variability:: Moderate Accelerations:: 15 x 15 Decelerations:: Variable - to 120 with quick return less than 10 sec down NST Reactive:: Yes, Appropriate for gestational age FHR Category:: Category I - FHR Rate Baby B Baseline: 140-150 with accels to 180s Variability:: Moderate Accelerations:: 15 x 15 Decelerations:: Variable - to 120s, NST Reactive:: Yes, Appropriate for gestational age FHR Category:: Category I Uterine Activity:: occasional irritability. no UCs noted. Impression/Plan Twin IUP at 35 6/7 wk EGA Br-Br presentation False labor ROM test NEG Cervix closed int os, high. Unengaged presenting part Home. Keep next ofc appt, Continue NST q 3-4 d. Next due by Wed/Thurs this week.
== END 2018-08-05 21:40 | disposition home or self-care (01) ==
LOC: WPOUT 20:14 → WP 21:11
PROVIDERS: Referring Provider Obstetrics & Gynecology; Visit Provider Obstetrics & Gynecology
DX: O47.03 False labor before 37 completed weeks of gestation, third trimester (principal); O30.003 Twin pregnancy, unspecified number of placenta and unspecified number of amniotic sacs, third trimester; O32.1XX1 Maternal care for breech presentation, fetus 1; O32.1XX2 Maternal care for breech presentation, fetus 2; J45.909 Unspecified asthma, uncomplicated; Z3A.35 35 weeks gestation of pregnancy
CPT/HCPCS: 59025; 59050; 84112; 99218; G0378

== ENCOUNTER 2018-08-09 13:55 | Outpatient (CLI) | payer MEDICAID, SELFPAY ==
[2018-08-09 14:13] VITALS: BMI 51.8
--- NOTE | 2018-08-09 20:56 | OB.TRI.NOTE ---
- Problem List (1) 36 weeks gestation of Status: Acute (2) Dichorionic diamniotic twin gestation Status: Acute Qualifiers: Trimester: third trimester History of Present Illness Date of Service: 08/09/18 Was patient seen by the physician?: No Reason For Visit: NST Final CIERRA: 09/03/18 Final CIERRA Source: US <20 weeks Gestational age: 36 Weeks and 3 Days History of Present Illness: 33yo @ 36 3/7wga with dichorionic diamnionic twin gestation for scheduled NST Allergies No Known Allergies Allergy (Verified 08/05/18 20:18) - Pertinent Past Medical History Medical History: Past Medical History (Last Reviewed 02/13/18 @ 17:45 by Muna Domingo) Asthma Difficulty balancing History of febrile seizure SOB (shortness of breath) Surgical History: Past Surgical History (Last Reviewed 02/13/18 @ 17:45 by Muna Domingo) History of cholecystectomy History of tonsillectomy and adenoidectomy Physical Exam Vitals: vss NST - FHR Rate Baby A Baseline: 150 Variability:: Moderate Accelerations:: 15 x 15 Decelerations:: None NST Reactive:: Yes FHR Category:: Category I Uterine Activity:: 0/10 - FHR Rate Baby B Baseline: 150 Variability:: Moderate Accelerations:: 15 x 15 Decelerations:: None NST Reactive:: Yes FHR Category:: Category I Uterine Activity:: 0/10 Impression/Plan Dichorionic diamnionic twin gestation 36 weeks gestation Reactive NST x 2 d/c home
--- NOTE | 2018-08-09 21:00 | OB.TRI.HP_ITS ---
- Problem List (1) 36 weeks gestation of Status: Acute (2) Dichorionic diamniotic twin gestation Status: Acute Qualifiers: Trimester: third trimester History of Present Illness Date of Service: 08/09/18 Was patient seen by the physician?: No Reason For Visit: NST Final CIERRA: 09/03/18 Final CIERRA Source: US <20 weeks Gestational age: 36 Weeks and 3 Days History of Present Illness: 33yo @ 36 3/7wga with dichorionic diamnionic twin gestation for schedu led NST Allergies No Known Allergies Allergy (Verified 08/05/18 20:18) - Pertinent Past Medical History Medical History: Past Medical History (Last Reviewed 02/13/18 @ 17:45 by Muna Domingo) Asthma Difficulty balancing History of febrile seizure SOB (shortness of breath) Surgical History: Past Surgical History (Last Reviewed 02/13/18 @ 17:45 by Muna Domingo) History of cholecystectomy History of tonsillectomy and adenoidectomy Physical Exam Vitals: vss NST - FHR Rate Baby A Baseline: 150 Variability:: Moderate Accelerations:: 15 x 15 Decelerations:: None NST Reactive:: Yes FHR Category:: Category I Uterine Activity:: 0/10 - FHR Rate Baby B Baseline: 150 Variability:: Moderate Accelerations:: 15 x 15 Decelerations:: None NST Reactive:: Yes FHR Category:: Category I Uterine Activity:: 0/10 Impression/Plan Dichorionic diamnionic twin gestation 36 weeks gestation Reactive NST x 2 d/c home
== END 2018-08-09 14:50 | disposition home or self-care (01) ==
LOC: WPOUT 14:01 → WP 14:02
PROVIDERS: Referring Provider Obstetrics & Gynecology; Visit Provider Obstetrics & Gynecology
DX: O30.043 Twin pregnancy, dichorionic/diamniotic, third trimester (principal); J45.909 Unspecified asthma, uncomplicated; Z3A.36 36 weeks gestation of pregnancy
CPT/HCPCS: 59025

== ENCOUNTER 2018-08-13 17:05 | Inpatient (IN) | payer MEDICAID, SELFPAY ==
[2018-08-13] VITALS (11 sets, daily range): BP systolic 103–146; BP diastolic 58–91; PULSE 94–118; RESP 18–20; TEMP 35.6–36.4; O2SAT 97–99; BMI 51.8
[2018-08-13 16:40] LABS: Hematocrit 32.5 % (37-47); Hemoglobin 10.4 g/dl (12.0-15.0); Mean Corpuscular Hgb 28.2 pg (27.0-32.0); Mean Corpuscular Volume 88.1 fL (81-99); Mean Platelet Vol. 13.4 fl (6.2-12.0); Platelet Count 230 K/mm3 (150-450); RBC Distribution Width CV 13.2 % (11.6-14.6); RBC Distribution Width SD 42.3 fl (35.1-43.9); Red Blood Count 3.69 M/mm3 (4.2-5.4); White Blood Count 9.2 K/mm3 (4.4-11.0)
[2018-08-13 16:51] LABS: ALB/GLOB Ratio 0.5 RATIO (0.9-2.4); AST(SGOT) 16 U/L (15-37); Alanine Aminotransfer ALT/SGPT 16 U/L (13-56); Albumin, Serum 2.4 g/dL (3.2-5.0); Alkaline Phosphatase 165 U/L (45-117); Anion Gap 9 (5-15); BUN 9 mg/dL (7-18); BUN/Creat Ratio 15.1 RATIO (10-20); Calcium,Total 8.4 mg/dL (8.5-10.1); Chloride 106 mmol/L (98-107); EST Glomerular Filtration Rate 122 mL/min (>60); Est Glom Filt Rate - Afr Amer 148 mL/min (>60); Estimated Creatinine Clearance 118.88 ml/min; Globulin 4.4 g/dL (2.2-4.2); Glucose 76 mg/dL (74-106); Potassium 4.1 mmol/L (3.5-5.1); Protein, Total 6.8 g/dL (6.4-8.2); Sodium Level 138 mmol/L (136-145); Uric Acid 4.6 mg/dL (2.6-6.0)
[2018-08-13 17:06] LABS: Scan Indicated on CBC? Y/N NO
[2018-08-13 17:27] LABS: Partial Thromboplast Time 27.7 Seconds (24.1-36.2)
[2018-08-13] MEDS: Lactated Ringers 1,000 ML 999 ML IV (17:45)
[2018-08-13] MEDS: Lactated Ringers 1,000 ML 150 ML IV ×2 (17:46→17:53)
[2018-08-13 17:48] LABS: International Normalized Ratio 0.9; Prothrombin Time (Protime)PT. 12.1 SECONDS (11.7-14.9)
[2018-08-13] MEDS: Sodium Citrate/Citric Acid 30 ML UDC PO (17:52)
[2018-08-13] MEDS: Oxytocin 30 units/NS 500 ml 30 UNITS/500 ML IV.SOLN 167 UNITS IV ×2 (18:28→19:19)
[2018-08-13] MEDS: Methylergonovine 0.2 MG/ML Ampul IM (18:31)
[2018-08-13] MEDS: Ketorolac 30 MG/ML Syringe IV (18:55)
[2018-08-13] MEDS: Lactated Ringers 1,000 ML 100 ML IV (19:10)
--- NOTE | 2018-08-13 19:19 | OP.PCM_ITS ---
Operative Report Date of Procedure: 08/13/18 Surgeon: Deuce Ibarra MD, FACOG Sports Statistician: IAIN Vora Anesthesia: Agustín Putnam CRNA Anesthesia: Spinal with Duramorph Pre-Op Diagnosis: Twin Intrauterine in Labor at 37 Weeks Gestation with Breech-Breech Presentation; Desires Permanent Sterilization Post-Op Diagnosis: Twin Intrauterine in Labor at 37 Weeks Gestation with Breech-Breech Presentation; Desires Permanent Sterilization Procedure: Primary Low Transverse Cervical Caesarean Section And Bilateral Tubal Occlusion with Filshie Clips Findings: Baby A: Viable female in bob breech presentation with Apgars of 8/9 with clear amniotic fluid and normal three-vessel placenta. Baby B: Viable female in bob breech presentation with Apgars of 8/9 with clear amniotic fluid and normal three-vessel placenta. Indication: This is a 33-year-old who presents for her first at 37 weeks gestation in active labor with twin gestations in a breech-breech presentation. care has otherwise been uneventful. The patient has been counseled regarding the risk and indications of this procedure including the possibility of bleeding infection and injury to surrounding structures such as bowel bladder. All questions were answered. Procedure: Patient was taken to the operating room where after spinal anesthesia was placed, the patient was prepped and draped in usual sterile fashion and a Irby catheter was placed. The abdomen was entered through a Pfannenstiel inci yc and peritoneum was entered bluntly. After developing a bladder flap on the lower uterine segment a low transverse incision was made on the uterus. Baby A breech was easily delivered onto the operative field the nose mouth and oropharynx were bulb suctioned. Subsequently a viable female was born with Apgars of 8/9. Then Baby B breech was easily delivered onto the operative field the nose mouth and oropharynx were bulb suctioned. Subsequently a viable female infant was born with Apgars of 8/9. Infants were noted to cry move all extremities vigorously on the operative field. The umbilical cords were doubly clamped and ligated and infants handed to the nursery personnel who were present for the delivery. Placentae was delivered and noted to be 3 vessels and normal. Uterus was exteriorized and remaining placental tissue was removed. The uterus was then closed in 2 layers first with running locked 0 Vicryl suture followed by a second imbricating layer with 0 Vicryl suture. 0 Vicryl suture was then used in a horizontal mattress interrupted fashion to affect final hemostasis of the uterine incision line. Normal fallopian tubes and ovaries were visualized and Filshie clips clips were placed on each tube approximately 1-2 cm from the uterine fundus. The uterus was returned to the pelvis. Hemostasis was noted and rectus abdominis muscles were reapproximated in the midline with interrupted Number 0 Vicryl suture in a horizontal mattress fashion. Fascia was closed with running Number 1 PDS Strata fix suture. Subcutaneous tissue was irrigated with copious amounts of saline solution and then closed with running 3-0 Vicryl suture. Skin was closed with 4-0 Monocryl suture in a running subcuticular fashion. Steri strips, telfa, and tape were placed across the incision. The patient tolerated the procedure well and was taken to the recovery room in satisfactory condition. Sponge, needle, and instrument counts were all reportedly correct. EBL was less than 500 cc. Ancef 3 gms IV was given prior to the procedure. Spicemen to Pathology: Twin placenta which appeared to be separate placenta. Complications: None
--- NOTE | 2018-08-13 19:20 | DCINST_ITS ---
Discharge Diet: No Restrictions Discharge Activity: May not drive while taking narcotic pain medications., May Shower, May Take a Tub Bath May resume sexual activity in: 4-6 weeks Lifting Restrictions: 20 pounds Additional Activity Instructions:: Nothing in the vagina for 4-6 weeks. You may return to work/school in 6 weeks. Call your doctor if your incision/area has: Continuous Slow Oozing, Sudden Increased Bleeding, Increased Pain/ Swelling, Increased Redness, Foul Smelling Discharge Call your doctor if you observe: Fever of 101 or Higher, Inability to urinate, Inability to have a bowel movement, Using more than one pad per hour Additional Instructions: If you experience any of the following, contact your healthcare provider. * Bleeding that soaks a pad every hour for 2 hours * Fever 100.4 or higher * Unrelieved incision or abdominal pain * Swelling, redness, discharge or bleeding from your incision or episiotomy site * Your incision begins to separate * Problems urinating (including inability to urinate or burning while urinating). * Visual changes * Severe headache * Flu-like symptoms * Pain or redness in one of both of your breasts * Pain, warmth, tenderness or swelling in your legs, especially the calf area * Frequent nausea and vomiting * Symptoms of depression or anxiety If you experience any of the following, call 911 or go to the nearest Emergency Room. * Chest pain * Problems breathing * Seizure activity * Partial or complete paralysis of a body part, slurred speech, weakness or drooping of the face, or a sudden inability to walk or hold your balance Allergies/Adverse Reactions: Allergies No Known Allergies Allergy (Verified 08/05/18 20:18) Medications to take at Discharge Pediatric Multivitamin Comb#30 [Gummies Children Multivitamin] 2 each PO DAILY 07/05/18 Docusate Sodium [Colace] 100 mg PO BID PRN PRN #60 cap 08/13/18 Oxycodone [Oxyir] 5 mg PO Q6H PRN PRN 7 Days #20 tab 08/13/18 The following prescriptions were given: Oxycodone [Oxyir] 5 mg PO Q6H PRN PRN 7 Days #20 tab PRN Reason: Severe Pain (-07/11) Docusate Sodium [Colace] 100 mg PO BID PRN PRN #60 cap PRN Reason: Constipation Follow-Up: Call to make an appointment with your doctor for an incision check in 1-2 weeks. You will also need a 6 week post- follow up appointment. Test results from this visit will be discussed in further detail at your follow- up appointment, if applicable. Please Follow Up With: Deuce Ibarra MD - [phone] When: Call to make an appointment for an incision check in 2 weeks. Primary Care Physician: Care Physician,No Primary [Primary Care Provider] -
--- NOTE | 2018-08-13 22:26 | PLAC_PTH ---
PATIENT: MURRAY QUINN LOC: [facility] U#:[id number] AGE/SX: 33/F ROOM: WP021 RE08/13/[address]: Dr. Deuce Ibarra MD : [id number] BED: 1 DIS: 08/15/2018 SPEC #: [id number] RECD: 08/13/18 22:37 STATUS: PATRICIA REAlma #: [id number] KALEY: 08/13/18 22:[address]: Deuce Ibarra DEPT: SURGICAL PATHOLOGY RECD BY: Abner Kurtz ENTERED: 08/14/18 11:04 SP TYPE: PLACENTA OTHR DR: No Primary Care Phys Tissues: Placenta, NOS Procedures: Surgery Specimen Level V HEADER OPERATION: Primary section PRE-OP DIAGNOSIS: Twin gestation TISSUE SUBMITTED: Placenta MICROSCOPIC DIAGNOSIS Twin placenta: Placenta A (532 g): Umbilical cord - trivascular with no inflammation. Peripheral membranes - no pathologic change. Placental disc - intravillous congestion and mildly increased microcalcifications. Placenta B (382 g): Umbilical cord - trivascular with no inflammation. Peripheral membranes - no pathologic change Placental disc - mildly increased intraparenchymal fibrin plaques AM:blaise 08/15/18 MICROSCOPIC DESCRIPTION Slides are reviewed. GROSS DESCRIPTION SPECIMEN: TWIN PLACENTA with two attached umbilical cords and connected only by a dividing membrane. One placental disc contains an umbilical cord that has a clipped pair placental disc and attached membranes and cord and will be designated placental disc A. Manipulation of the dividing membrane reveals 4 distinct membranes. / CLINICAL INFORMATION: A. Weight: A - 2.92kg; B - 2.845kg B. Gestational Age: 37 weeks C. Sex: A - Female; B - Female PLACENTA A: MEMBRANES - Present A. Insertion: Marginal B. Site of rupture from edge: 4 cm from edge of placental disc C. Color of membrane: Guerrero-velázquez D. Abnormalities: None UMBILICAL CORD - Present A. Color: Guerrero-velázquez B. Insertion: Marginal C. Length: 43 cm D. Diameter: 1.2 cm E. Number of vessels: Three F. Abnormalities: None PLACENTAL DISC - A A. Measures: 19 x 18 x 3 cm B. Weight: 532 grams C: Mass lesions: None PLACENTA B: MEMBRANES - Present A. Insertion: Marginal B. Site of rupture at edge of placental disc C. Color of membrane: Guerrero-velázquez D. Abnormalities: None UMBILICAL CORD - Present A. Color: Guerrero-velázquez B. Insertion: Eccentric C. Length: 45 cm D. Diameter: 1.5 cm E. Number of vessels: Three F. Abnormalities: None PLACENTAL DISC - B A. Measures: 18 x 14 x 2.5 cm B. Weight 382 g C. Lesions: None SECTIONS SUBMITTED: 9 cassettes 1 - Dividing membranous septum, 2- Placental membranes and umbilical cord A, 3 through 5 - placental disc A, 6- umbilical cord and membranes from placenta B, 7 through 8 - placental disc B with maternal and surfaces. 9&10 - additional dividing membrane AM:blaise 08/14/18 TC:5 CPT: 96999 x2
[2018-08-13] MEDS: Ondansetron 4 MG/2 ML Vial IV (22:44)
[2018-08-14] VITALS (13 sets, daily range): BP systolic 113–123; BP diastolic 64–78; PULSE 87–103; RESP 16–20; TEMP 35.9–36.6; O2SAT 97–99
[2018-08-14] MEDS: proMETHazine 25 MG/ML Syringe 12.5 MG IV (00:36)
[2018-08-14] MEDS: Ketorolac 30 MG/ML Syringe IV ×4 (01:08→23:13)
[2018-08-14] MEDS: 0.9% Saline Lock 10 ML Syringe IV ×2 (01:08→23:13)
[2018-08-14] MEDS: Cefazolin 1 GM/50 ML BAG IV ×2 (01:30→09:59)
[2018-08-14 06:45] LABS: Hematocrit 28.4 % (37-47); Mean Corp Hgb Conc 31.7 g/gl (32-36); Mean Corpuscular Volume 88.5 fL (81-99); Platelet Count 200 K/mm3 (150-450); RBC Distribution Width CV 13.3 % (11.6-14.6); Red Blood Count 3.21 M/mm3 (4.2-5.4); White Blood Count 10.7 K/mm3 (4.4-11.0)
[2018-08-14 07:16] LABS: Scan Indicated on CBC? Y/N NO
--- NOTE | 2018-08-14 07:57 | PCM.PN.OB ---
Subjective: Patient without complaints. Tolerating diet well. Denies flatus. Pain well controlled. Minimal vaginal bleeding. - Physical Exam Vital Signs AF, VSS Temp Pulse Resp BP Pulse Ox 97.5 F L 98 16 122/64 H 97 08/14/18 03:26 08/14/18 04:26 08/14/18 04:26 08/14/18 03:26 08/14/18 04:26 Oxygen Delivery Method Room Air Weight: 316 lb 3.2 oz Body Mass Index (BMI) 51.8 Intake and Output for Last 24 Hours 08/12/18 08/13/18 08/14/18 23:59 23:59 23:59 Intake Total 3801 / 3801 Output Total 900 / 900 Balance 2901 / 2901 Laboratory Tests Past 24 Hrs 08/13/18 08/13/18 08/13/18 16:00 16:00 16:00 WBC 9.2 RBC 3.69 L Hgb 10.4 L Hct 32.5 L MCV 88.1 MCH 28.2 MCHC 32.0 RDW 13.2 RDW Differential 42.3 Plt Count 230 MPV 13.4 H PT 12.1 INR 0.9 APTT 27.7 Sodium 138 Potassium 4.1 Chloride 106 Carbon Dioxide 23.0 Anion Gap 9 BUN 9 Creatinine 0.60 Estim Creat Clear Calc 118.88 Est GFR (MDRD) Af Amer 148 Est GFR (MDRD) Non-Af 122 BUN/Creatinine Ratio 15.1 Glucose 76 Uric Acid 4.6 Calcium 8.4 L Total Bilirubin 0.20 AST 16 ALT 16 Alkaline Phosphatase 165 H Total Protein 6.8 Albumin 2.4 L Globulin 4.4 H Albumin/Globulin Ratio 0.5 L Blood Type Antibody Screen 08/13/18 08/14/18 16:00 06:29 WBC 10.7 RBC 3.21 L Hgb 9.0 L Hct 28.4 L MCV 88.5 MCH 28.0 MCHC 31.7 L RDW 13.3 RDW Differential 43.0 Plt Count 200 MPV 13.0 H PT INR APTT Sodium Potassium Chloride Carbon Dioxide Anion Gap BUN Creatinine Estim Creat Clear Calc Est GFR (MDRD) Af Amer Est GFR (MDRD) Non-Af BUN/Creatinine Ratio Glucose Uric Acid Calcium Total Bilirubin AST ALT Alkaline Phosphatase Total Protein Albumin Globulin Albumin/Globulin Ratio Blood Type O POSITIVE Antibody Screen NEGATIVE Wound is clean, dry, intact. Good urine output. Hemoglobin okay. Medical Necessity - Tobacco Use Smoking Status: Former smoker Assessment/Plan All Active Problems (Last Reviewed 02/13/18 @ 17:45 by uMna Domingo) with 34 completed weeks gestation (Acute) Dichorionic diamniotic twin gestation (Acute) 36 weeks gestation of (Acute) Vomiting (Acute) Migraine (Acute) Otitis media (Acute) Sinusitis (Acute) Doing well postoperative day #1 status post primary section and tubal for 37-week twin gestation in labor. Continuing present care.
[2018-08-14] MEDS: Acetaminophen 500 MG Tablet 1000 MG PO (13:03)
[2018-08-15 02:19] VITALS: BP 133/79; PULSE 86; RESP 16; TEMP 36.6; O2SAT 97
[2018-08-15] MEDS: Ketorolac 30 MG/ML Syringe IV ×2 (05:31→10:55)
--- NOTE | 2018-08-15 08:33 | PCM.PN.OB ---
Subjective: Patient without complaints. Tolerating diet well. Positive flatus. Pain well controlled. Wants to go home later today if possible. - Physical Exam Vital Signs Temp Pulse Resp BP Pulse Ox 98 F 86 16 133/79 H 97 08/15/18 02:19 08/15/18 02:19 08/15/18 02:19 08/15/18 02:19 08/15/18 02:19 Oxygen Delivery Method Room Air Weight: 316 lb 3.2 oz Body Mass Index (BMI) 51.8 Intake and Output for Last 24 Hours 08/13/18 08/14/18 08/15/18 23:59 23:59 23:59 Intake Total 3801 / 3801 2851 / 2851 Output Total 900 / 900 1475 / 1475 1000 / 1000 Balance 2901 / 2901 1376 / 1376 -1000 / -1000 Wound is clean, dry, intact. Good urine output. Minimal vaginal bleeding. Medical Necessity - Tobacco Use Smoking Status: Former smoker Assessment/Plan All Active Problems (Last Reviewed 02/13/18 @ 17:45 by Muna Domingo) with 34 completed weeks gestation (Acute) Dichorionic diamniotic twin gestation (Acute) 36 weeks gestation of (Acute) Vomiting (Acute) Migraine (Acute) Otitis media (Acute) Sinusitis (Acute) Doing well postoperative day #2. Will release to home with routine instructions.
[2018-08-15 08:34] VITALS: BP 146/74; PULSE 86; RESP 20; TEMP 37
[2018-08-15] MEDS: 0.9% Saline Lock 10 ML Syringe IV (10:55)
[2018-08-15] MEDS: Acetaminophen 500 MG Tablet 1000 MG PO (13:25)
[2018-08-15 13:31] VITALS: BP 127/81; PULSE 90; RESP 20; TEMP 36.7; O2SAT 97
[2018-08-15 16:00] VITALS: BP 127/81; PULSE 90; RESP 20; TEMP 36.7; O2SAT 97
[2018-08-21 15:28] LABS: Pathology Specimen OB SEE PATHOLOGY REPORT
== END 2018-08-15 16:40 | disposition home or self-care (01) | DRG 540 ==
LOC: WPOUT 17:08 → WP 17:08
PROVIDERS: Admitting Provider Obstetrics & Gynecology; Referring Provider Obstetrics & Gynecology; Visit Provider Obstetrics & Gynecology
DX: O30.043 Twin pregnancy, dichorionic/diamniotic, third trimester (principal); O32.1XX1 Maternal care for breech presentation, fetus 1; O32.1XX2 Maternal care for breech presentation, fetus 2; Z30.2 Encounter for sterilization; J45.909 Unspecified asthma, uncomplicated; Z87.891 Personal history of nicotine dependence; Z3A.37 37 weeks gestation of pregnancy; Z37.2 Twins, both liveborn
CPT/HCPCS: 59025; 59050; 80053; 84550; 85027; 85610; 85730; 86850; 86900; 88307; 99218; J7120; A4216; G0378; J2405

== ENCOUNTER 2018-08-22 09:38 | Outpatient (CLI) | payer MEDICAID, SELFPAY | END 2018-08-22 11:00 | disposition home or self-care (01) | LOC: WPOUT 09:40 → WP 09:41 | PROVIDERS: Referring Provider Obstetrics & Gynecology; Visit Provider Obstetrics & Gynecology | DX: Z39.1 Encounter for care and examination of lactating mother (principal) | CPT/HCPCS: 96152 ==

== ENCOUNTER 2019-10-29 08:38 | Emergency (ER) | payer MEDICAID, SELFPAY ==
[2019-10-29 08:39] VITALS: BP 156/102; PULSE 86; RESP 18; TEMP 36.6; O2SAT 96; BMI 49.9
--- NOTE | 2019-10-29 08:53 | VDLE_ITS ---
Reason For Study: pain RIGHT LEFT GSV is normal. CFV is compressible, spontaneous, phasic, CFV is compressible, spontaneous, phasic, competent, and demonstrates normal competent and demonstrates normal augmentation. augmentation. FV is compressible, spontaneous, phasic, competent and demonstrates normal augmentation. POP V is compressible, spontaneous, phasic, competent and demonstrates normal augmentation. T/P Trunk is compressible. PTV is compressible. RT PerV is compressible. Procedure Exam performed portable in ED. The exam was diagnostic. A preliminary report was called and/or faxed to Dr. Bullard. Interpretation Summary There is no evidence of right lower extremity deep vein thrombosis. Right great saphenous vein appears patent and compressible segmentally. Patent and compressible left common femoral vein Ordering Physician: Ke Bullard Performed By: Thomas Solomon RVT
--- NOTE | 2019-10-29 08:54 | ED.VIS.GEN ---
History of Present Illness Chief Complaint: Lower Extremity Injury Informant: Patient Onset: Yesterday Timing: Continuous Current Severity: Mild Maximum Severity: Mild Narrative: Patient presents with right lower extremity pain. She feels cramping, is mostly in her calf, she has had cramping last night and it subsided now she has pain on the inner thigh of her leg. She has no chest pain shortness of breath fever chills no recent trauma. 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 Denies: Swelling Skin: Denies: Rash, Abrasions, Wounds Neurological: Denies: Weakness Hematologic: Denies: Easy bruising Physical Exam Vital Signs/Narrative: Vital Signs Temp Pulse Resp BP Pulse Ox 10/29/19 08:39 97.8 F 86 18 156/102 H 96 General: Well nourished, Well developed Eyes: Perrl ENT: Moist mucous membranes Cardiovascular: Regular rate, Regular rhythm Respiratory: No distress, CTA bilaterally Abdomen: Soft, Nontender Extremities: - - There is slight calf tenderness, there is some tenderness on the inner groin region as well as the anterior quadricep region. There is no rash. There is no edema. Legs are symmetric. Normal distal pulses Skin: Normal color Neurological: Normal Strength, Normal Sensation Psychological: Normal affect Diagnostic/Tx/Re-eval - Medical Decision Making Patient has a normal ultrasound, no DVT, there are no signs of trauma no further testing is needed I will discharge with reassurance that this is likely muscle cramps. She does not have diffuse muscle cramps therefore I did not check electrolytes. ED Disposition - Plan for ED Patient: Disposition: Home or Assisted Living Diagnosis: Muscle cramps, 36 weeks gestation of Instructions: Muscle Spasm Referrals: Care Physician,No Primary [Primary Care Provider] - 3-5 Days
== END 2019-10-29 10:08 | disposition home or self-care (01) ==
LOC: ED 09:47
PROVIDERS: Emergency Provider Emergency Medicine; PCP Family Medicine
DX: O26.893 Other specified pregnancy related conditions, third trimester (principal); M62.831 Muscle spasm of calf; Z79.899 Other long term (current) drug therapy; Z87.891 Personal history of nicotine dependence; Z3A.36 36 weeks gestation of pregnancy
CPT/HCPCS: 93971; 99282